=== PATIENT | male | born 1965 | race Caucasian/White ===

== ENCOUNTER 2017-01-26 08:45 | Inpatient (IN) | payer OTHER ==
[2017-01-26 09:01] VITALS: BMI 24.2
--- NOTE | 2017-01-26 12:00 | HP ---
CIWA Score - CIWA Score Nausea/Vomitin Muscle Tremors: 3 Anxiety: 3 Agitation: 3 Paroxysmal Sweats: 3 Orientation: 0-Oriented Tacttile Disturbances: 2-Mild Itch/Numbness/Burn Auditory Disturbances: 2-Mild Harshness/Frighten Visual Disturbances: 2-Mild Sensitivity Headache: 2-Mild CIWA-Ar Total Score: 23 Admission ROS BHS - HPI Chief Complaint: i need help to stop drinking alcohol,cocaine ,heroin,mmtp Allergies/Adverse Reactions: Allergies Allergy/AdvReac Type Severity Reaction Status Date / Time No Known Drug Allergies Allergy Verified 01/26/17 09:14 beans Allergy Intermediate Itching Uncoded 01/26/17 09:13 History of Present Illness: this 51 years old male with alcohol,cocaine dependence,heroin abused,mmtp 60 mgs /day,last medicated yesterday last detox 20 years ago nicotine dependence schizoaffective disorder longest period of sobriety 2 years Exam Limitations: No Limitations - Ebola screening Have you traveled outside of the country in the last 21 days: No Have you been sick,other than usual withdrawal symptoms: No - Review of Systems Constitutional: Chills, Diaphoresis, Loss of Appetite, Malaise, Night Sweats, Changes in sleep, Unexplained wgt Loss EENT: reports: Tearing, Nose Congestion Respiratory: reports: No Symptoms reported Cardiac: reports: No Symptoms Reported GI: reports: Diarrhea, Nausea, Vomiting, Indigestion, Abdominal cramping : reports: No Symptoms Reported Musculoskeletal: reports: Back Pain, Muscle Pain Integumentary: reports: Dryness Neuro: reports: Headache, Tremors Endocrine: reports: No Symptoms Reported Hematology: reports: No Symptoms Reported Psychiatric: reports: Judgement Intact, Mood/Affect Appropiate, Orientated x3, Anxious, Depressed, other (schizoaffective disorder) Patient History - Patient Medical History Hx Anemia: No Hx Asthma: No Hx Chronic Obstructive Pulmonary Disease (COPD): No Hx Cancer: No Hx Cardiac Disorders: No Hx Congestive Heart Failure: No Hx Hypertension: No Hx Hypercholesterolemia: No HX Cerebrovascular Accident: No Hx Seizures: Yes (last 2 years ago) Hx Diabetes: Yes (WDS=859) Hx Gastrointestinal Disorders: No Hx Liver Disease: No Hx Genitourinary Disorders: No Hx Sexually Transmitted Disorders: No Hx Renal Disease (ESRD): No Hx Thyroid Disease: No Hx Human Immunodeficiency Virus (HIV): No (last 2016 negative) Hx Hepatitis C: Yes (treatment 2015) Hx Depression: Yes Hx Suicide Attempt: No Hx Bipolar Disorder: No Hx Schizophrenia: Yes (schizoeffective) Other Medical History: no suicidal,no hmicidal - Patient Surgical History Past Surgical History: Yes Hx Orthopedic Surgery: Yes (2016-lrt knee(torn meniscus)Flat foot sx lt foot) Anesthesia Reaction: No - PPD History Previous Implant?: Yes Documented Results: Negative w/o proof Implanted On Prior [facility] Admission?: No PPD to be Administered?: Yes - Smoking Cessation Smoking history: Current every day smoker Have you smoked in the past 12 months: Yes Aproximately how many cigarettes per day: 10 Hx Chewing Tobacco Use: No Initiated information on smoking cessation: Yes 'Breaking Loose' booklet given: 01/26/17 - Substances Abused Alcohol Route: Oral Frequency: Daily Amount used: vodka(1/2 quart)/beer-2 cans/rum(1/2 quart) Age of first use: 9 Date of Last Use: 01/24/17 Heroin Route: Injection Frequency: Daily Amount used: 5 bags Age of first use: 28 Date of Last Use: 01/25/17 Cocaine Route: Injection Frequency: Daily Amount used: $100-200 Age of first use: 14 Date of Last Use: 01/25/17 Crack Route: Smoking Frequency: Daily Amount used: $100 Age of first use: 24 Date of Last Use: 01/25/17 Family Disease History - Family Disease History Family Disease History: Other: Mother (alcohol) Admission Physical Exam S - Vital Signs Vital Signs: Vital Signs - 24 hr 01/26/17 08:53 Temperature 95.9 F L Pulse Rate 78 Respiratory 18 Rate Blood Pressure 108/67 - Physical General Appearance: Yes: Moderate Distress, Tremorous, Irritable, Sweating, Anxious HEENTM: Yes: Hearing grossly Normal, Normal ENT Inspection, CECILIO, Nasal Congestion, Rhinorrhea Respiratory: Yes: Lungs Clear, Normal Breath Sounds, No Respiratory Distress Neck: Yes: Within Normal Limits, Supple, Trachea in good position Breast: Yes: Within Normal Limits Cardiology: Yes: Within Normal Limits, Regular Rhythm, Regular Rate, S1, S2 Abdominal: Yes: Within Normal Limits, Normal Bowel Sounds, Non Tender Genitourinary: Yes: Within Normal Limits Back: Yes: Normal Inspection, Muscle Spasm Musculoskeletal: Yes: Back pain, Joint Stiffness, Muscle Pain Extremities: Yes: Tremors Neurological: Yes: crop farm helper II-XII NML intact, Fully Oriented, Alert, Motor Strength 5/5 Integumentary: Yes: Dry Lymphatic: Yes: Within Normal Limits - Diagnostic (1) Alcohol dependence with uncomplicated withdrawal Current Visit: Yes Status: Acute (2) Cocaine dependence Current Visit: Yes Status: Acute (3) Methadone maintenance therapy patient Current Visit: Yes Status: Acute (4) Opioid dependence Current Visit: Yes Status: Acute (5) Seizure Current Visit: Yes Status: Acute (6) Weight loss Current Visit: Yes Status: Acute (7) DM2 (diabetes mellitus, type 2) Current Visit: Yes Status: Acute (8) Hepatitis C Current Visit: Yes Status: Acute (9) Right knee injury Current Visit: Yes Status: Acute Cleared for Admission [facility] - Detox or Rehab [facility] Level of Care: Medically Managed Detox Regimen/Protocol: Librium S Breath Alcohol Content Breath Alcohol Content: 0 Urine Drug Screen - Results Drug Screen Negative: No Urine Drug Screen Results: RACHEL-Cocaine, OPI-Opiates, MTD-Methadone
[2017-01-26] MEDS ORDERED: IBUPROFEN 400 MG TABLET (FP) PO PRN (12:14)
[2017-01-26] MEDS ORDERED: hydrOXYzine PAMOATE 50 MG CAPSULE (FP) PO PRN (12:14)
[2017-01-26] MEDS ORDERED: diphenhydrAMINE HCL 50 MG CAPSULE PO PRN (12:14)
[2017-01-26] MEDS ORDERED: chlordiazePOXIDE HCL 25 MG CAPSULE PO PRN (12:14)
[2017-01-26] MEDS ORDERED: MAGNESIUM HYDROX 2400MG/30ML ORAL SUSPENSION 30 ML CUP PO PRN (12:14)
[2017-01-26] MEDS ORDERED: MENTHOL/PHENOL 1 EACH UD MM PRN (12:14)
[2017-01-26] MEDS ORDERED: MAG HYDROX/AL HYDROX/SIMETH 30 ML UNIT-DOSE CUP PO PRN (12:14)
[2017-01-26] MEDS ORDERED: NICOTINE POLACRILEX 2 MG GUM BC PRN (12:14)
[2017-01-26] MEDS ORDERED: guaiFENesin/D-METHORPHAN HB 10 ML UNIT-DOSE CUPS PO PRN (12:14)
[2017-01-26] MEDS ORDERED: LOPERAMIDE HCL 2 MG CAPSULE PO PRN (12:14)
[2017-01-26] MEDS ORDERED: MAGNESIUM CITRATE 300 ML BOTTLE PO PRN (12:14)
[2017-01-26] MEDS ORDERED: ACETAMINOPHEN 325 MG TABLET (FP) PO PRN (12:14)
[2017-01-26] MEDS ORDERED: P-EPHED 60MG/TRIPROLIDI 2.5MG TABLET PO PRN (12:14)
[2017-01-26] MEDS ORDERED: METHADONE HCL 10 MG TABLET PO ONE (12:21)
[2017-01-26] MEDS ORDERED: chlordiazePOXIDE HCL 25 MG CAPSULE PO ONE (12:30)
[2017-01-26] MEDS ORDERED: METHADONE 40 MG, METHADONE 20 MG PO ONE (12:45)
[2017-01-26] MEDS ORDERED: METHADONE HCL 40 MG DISPERSABLE TABLET ONE (13:22)
[2017-01-26] MEDS ORDERED: METHADONE HCL 10 MG TABLET ONE (13:22)
[2017-01-26 14:38] LABS: HIV 1 & 2 AB NEGATIVE; HIV 1 AGp24 NEGATIVE
--- NOTE | 2017-01-26 15:09 | CONSULT ---
[facility] Psychiatric Consult - Data Date of interview: 01/26/17 Admission source: [facility] Identifying data: First admission to [facility] for this 51 y/o [place]-born male seeking detox treatment for heroin,alcohol,cocaine and marijuana dependence.Patient is single without children,now homeless,unemployed and supported on Public Assistance. Substance Abuse History: - Smoking Cessation. Smoking history: Current every day smoker. Have you smoked in the past 12 months: Yes. Aproximately how many cigarettes per day: 10. Hx Chewing Tobacco Use: No. Initiated information on smoking cessation: Yes. 'Breaking Loose' booklet given: 01/26/17. - Substances Abused. Alcohol. Route: Oral. Frequency: Daily. Amount used: vodka(1/2 quart)/beer-2 cans/rum(1/2 quart). Age of first use: 9. Date of Last Use: 01/24/17. Heroin. Route: Injection. Frequency: Daily. Amount used: 5 bags. Age of first use: 28. Date of Last Use: 01/25/17. Cocaine. Route: Injection. Frequency: Daily. Amount used: $100-200. Age of first use: 14. Date of Last Use: 01/25/17. Crack. Route: Smoking. Frequency: Daily. Amount used: $100. Age of first use: 24. Date of Last Use: 01/25/17. Confirmed by patient. Medical History: History of withdrawal seizures,hepatitis C,diabetes mellitus and orthosurgery for torn meniscus/right knee (2016) + surgical correction of flat foot (left). Psychiatric History: History of multiple psychiatric hospitalizations (years ago ).Diagnosed with Schizoaffective Disorder and ADHD.Prescribed seroquel 100 mg/ hs + depakote 500 mg po bid + adderall 20 mg po bid + zolpidem 10 mg/ hs.Chronically non-adherent to OPD care and medications.Last scripts were filled in September 2016.Mr Atwood recognizes the fact tthat he has not seen his psychiatrist " for a while ".Patient states that he wants to get back on his medications in order to have " control of my life ".He is on methadone maintenance (60 mg/day) at the [facility] in the [place].Patient denies history of suicide attempts. Physical/Sexual Abuse/Trauma History: Patient denies. Additional Comment: Urine Drug Screen Results: RACHEL-Cocaine, OPI-Opiates, MTD- Methadone.Noted. Mental Status Exam - Mental Status Exam Alert and Oriented to: Time, Place, Person Cognitive Function: Good Patient Appearance: Well Groomed Mood: Hopeful, Euthymic Affect: Appropriate, Normal Range Patient Behavior: Fatigued, Appropriate, Cooperative Speech Pattern: Clear Voice Loudness: Normal Thought Process: Goal Oriented Thought Disorder: Not Present Hallucinations: Denies Suicidal Ideation: Denies Homicidal Ideation: Denies Insight/Judgement: Poor Sleep: Poorly, Difficulty falling asleep Appetite: Good Muscle strength/Tone: Normal Gait/Station: Normal Psychiatric Findings - Problem List ([place] 1, 2,3) (1) Alcohol dependence with uncomplicated withdrawal Current Visit: Yes Status: Acute (2) Cocaine dependence Current Visit: Yes Status: Acute (3) Methadone maintenance therapy patient Current Visit: Yes Status: Acute (4) Opioid dependence Current Visit: Yes Status: Acute (5) Nicotine dependence Current Visit: Yes Status: Acute (6) Schizoaffective disorder Current Visit: Yes Status: Chronic Comment: Self-report. (7) DM2 (diabetes mellitus, type 2) Current Visit: Yes Status: Chronic (8) Hepatitis C Current Visit: Yes Status: Chronic (9) Right knee injury Current Visit: Yes Status: Chronic (10) Insomnia Current Visit: Yes Status: Acute - Initial Treatment Plan Initial Treatment Plan: Psychoeducation.Detoxification in progress.Medications : seroquel 100 mg po hs + depakote 500 mg po hs + ritalin 5 mg po bid @ 8 am/1 pm.Side effects/benefits discussed with the patient.He agrees with this careplan.Valproic acid level is pending.Observation.
[2017-01-26] MEDS: chlordiazePOXIDE HCL 25 MG CAPSULE PO SCH ×2 (17:21→22:37)
[2017-01-26 17:22] LABS: URINE APPEARANCE TURBID; URINE BILIRUBIN NEGATIVE (NEGATIVE); URINE BLOOD NEGATIVE (NEGATIVE); URINE COLOR YELLOW; URINE GLUCOSE (UA) NEGATIVE (NEGATIVE); URINE KETONE NEGATIVE (NEGATIVE); URINE NITRITE NEGATIVE (NEGATIVE); URINE PROTEIN NEGATIVE (NEGATIVE); URINE UROBILINOGEN NEGATIVE E.U./dl (0.2-1.0)
[2017-01-26 17:43] LABS: URINE LEUK ESTERASE 2+ (NEGATIVE)
[2017-01-26 19:50] LABS: URINE MUCUS FEW; URINE WBC 98 /hpf (3-5)
[2017-01-26] MEDS: THIAMINE HCL 100 MG TABLET (FP) PO SCH (22:37)
[2017-01-26] MEDS: QUEtiapine FUMARATE 100 MG TABLET (FP) PO SCH (22:38)
[2017-01-26] MEDS: DIVALPROEX SODIUM 500 MG TABLET E.C. PO SCH (22:38)
[2017-01-27] MEDS: chlordiazePOXIDE HCL 25 MG CAPSULE PO SCH ×3 (05:34→22:30)
[2017-01-27] MEDS ORDERED: METHADONE HCL 10 MG TABLET ONE (05:35)
[2017-01-27] MEDS ORDERED: METHADONE HCL 40 MG DISPERSABLE TABLET ONE (05:35)
[2017-01-27] MEDS: METHADONE 40 MG, METHADONE 20 MG PO SCH (05:37)
[2017-01-27] MEDS ORDERED: METHADONE HCL 10 MG TABLET PO SCH (06:00)
[2017-01-27] MEDS: METHYLPHENIDATE HCL 5 MG TABLET PO SCH ×2 (06:59→14:28)
[2017-01-27] MEDS: metFORMIN HCL 500 MG TABLET (FP) PO SCH (07:06)
--- NOTE | 2017-01-27 09:29 | PN ---
[facility] CIWA - CIWA Score Nausea/Vomitin-No Nausea/No Vomiting Muscle Tremors: 4-Moderate,w/Arms Extend Anxiety: 3 Agitation: 4-Moderately Restless Paroxysmal Sweats: 3 Orientation: 0-Oriented Tacttile Disturbances: 0-None Auditory Disturbances: 0-None Visual Disturbances: 0-None Headache: 0-None Present CIWA-Ar Total Score: 14 BHS Progress Note (SOAP) Subjective: Anxiety,tremors,sweating,interrupted sleep,restless.Somewhat drowsy Objective: 01/27/17 09:28 Vital Signs - 8 hr 01/27/17 06:30 Temperature 99 F Pulse Rate 80 Respiratory 16 Rate Blood Pressure 108/71 Laboratory Last Values POC Glucometer 102 UNITS (()) 01/27/17 05:37 Urine Color Yellow 01/26/17 13:50 Urine Appearance Turbid 01/26/17 13:50 Urine pH 5.0 (5.0-8.0) 01/26/17 13:50 Ur Specific [place] 1.031 (1.001-1.035) 01/26/17 13:50 Urine Protein Negative (NEGATIVE) 01/26/17 13:50 Urine Glucose (UA) Negative (NEGATIVE) 01/26/17 13:50 Urine Ketones Negative (NEGATIVE) 01/26/17 13:50 Urine Blood Negative (NEGATIVE) 01/26/17 13:50 Urine Nitrite Negative (NEGATIVE) 01/26/17 13:50 Urine Bilirubin Negative (NEGATIVE) 01/26/17 13:50 Urine Urobilinogen Negative E.U./dl (0.2-1.0) 01/26/17 13:50 Ur Leukocyte Esterase 2+ (NEGATIVE) H 01/26/17 13:50 Urine RBC None /hpf (0-3) 01/26/17 13:50 Urine WBC 98 /hpf (3-5) 01/26/17 13:50 Urine Mucus Few 01/26/17 13:50 HIV 1&2 Antibody Screen Negative 01/26/17 09:50 HIV P24 Antigen Negative 01/26/17 09:50 we'll repeat u/a Assessment: 01/27/17 09:28 withdrawal sx. Plan: continue detox hold 11am librium
[2017-01-27] MEDS ORDERED: ALBUTEROL SO4 6.7 GM HFA INHALER IH PRN (09:31)
[2017-01-27 10:08] LABS: MCH 29.9 pg (25.7-33.7); MEAN CELL VOLUME 90.8 fl (80-96); PLATELET COUNT 237 K/MM3 (134-434); RDW 13.2 % (11.9-15.9); WHITE BLOOD COUNT 7.3 K/mm3 (4.0-10.0)
[2017-01-27 10:11] LABS: ALBUMIN 3.7 g/dl (3.4-5.0); ALK PHOS 44 U/L (45-117); BILIRUBIN,TOTAL 0.3 mg/dL (0.2-1.0); CALCIUM 8.9 mg/dL (8.5-10.1); CO2 24 mmol/L (21-32); GLUCOSE,RANDOM 115 mg/dL (74-106); SGOT/AST 14 U/L (15-37); SGPT/ALT 18 U/L (12-78); TOT PROT 7.2 g/dl (6.4-8.2)
[2017-01-27] MEDS: PRENATAL VITAMINS W/ FOLIC ACID TABLET (FP) PO SCH (10:42)
[2017-01-27 10:55] LABS: ANION GAP 14 (8-16)
--- NOTE | 2017-01-27 14:37 | PN ---
Psychiatric Progress Note Vital Signs: Vital Signs Period Temp Pulse Resp BP Sys/Little Pulse Ox Last 24 Hr 96.4 F-99 F 80-87 16-20 104-119/60-72 Date of Session: 01/27/17 Chief Complaint:: sedation HPI: As per nursing reports patient is oversedated after taking methylphenidate order, as per nursing patient has been oversedated since early after evening Depakote order probably Current Medications: Active Medications Generic Name Dose Route Start Last Admin Trade Name Freq PRN Reason Stop Dose Admin Acetaminophen 650 mg 01/26/17 12:14 Tylenol - PO Q4H PRN FEVER OR PAIN Al Hydroxide/Mg Hydroxide 30 ml 01/26/17 12:14 Mylanta Oral Suspension - PO Q6H PRN DYSPEPSIA Albuterol Sulfate 2 puff 01/27/17 09:31 Ventolin Hfa Inhaler - IH Q4H PRN SHORT OF BREATH/WHEEZING Chlordiazepoxide HCl 10 mg 01/29/17 17:00 Librium - PO 01/30/17 11:01 [id number] ELA Chlordiazepoxide HCl 25 mg 01/26/17 12:14 Librium - PO 01/29/17 12:13 Q4H PRN WITHDRAWAL(CONT SUBST) Chlordiazepoxide HCl 25 mg 01/27/17 17:00 Librium - PO 01/28/17 11:01 [id number] ELA Chlordiazepoxide HCl 15 mg 01/28/17 17:00 Librium - PO 01/29/17 11:01 [id number] ELA Diphenhydramine HCl 50 mg 01/26/17 12:14 Benadryl - PO HSMR1 PRN INSOMNIA Divalproex Sodium 500 mg 01/26/17 22:00 01/26/17 22:38 Depakote - PO 500 mg HS ELA Administration Eucalyptus/Menthol/Phenol/Sorbitol 1 each 01/26/17 12:14 Cepastat Lozenge - MM Q4H PRN SORE THROAT Guaifenesin 10 ml 01/26/17 12:14 Robitussin Dm - PO Q6H PRN COUGH Hydroxyzine Pamoate 50 mg 01/26/17 12:14 Vistaril - PO Q4H PRN AGITATION Ibuprofen 400 mg 01/26/17 12:14 Motrin - PO Q6H PRN SEVERE PAIN Loperamide HCl 4 mg 01/26/17 12:14 Imodium - PO Q6H PRN DIARRHEA Magnesium Citrate 300 ml 01/26/17 12:14 Citroma - PO Q48H PRN CONSTIPATION Magnesium Hydroxide 30 ml 01/26/17 12:14 Milk Of Magnesia - PO DAILY PRN CONSTIPATION Metformin HCl 1,000 mg 01/27/17 07:00 01/27/17 07:06 Glucophage - PO 1,000 mg DAILY@0700 ELA Administration Methadone HCl 40 mg/ Methadone 60 mg 01/27/17 06:00 01/27/17 05:37 HCl 20 mg PO 02/02/17 06:01 60 mg DAILY@0600 ELA Administration Methylphenidate HCl 5 mg 01/27/17 08:00 01/27/17 14:28 Ritalin - PO 02/02/17 07:59 Not Given BID@0800,1300 [facility] Nicotine Polacrilex 2 mg 01/26/17 12:14 Nicorette Gum - BC Q2H PRN NICOTINE REPLACEMENT RX Multivit/Folic Acid/Iron 1 tab 01/27/17 10:00 01/27/17 10:42 Vitamins ([facility]) - PO 1 tab DAILY ELA Administration Pseudoephedrine/Triprolidine 1 combo 01/26/17 12:14 Actifed - PO TID PRN NASAL CONGESTION Quetiapine Fumarate 100 mg 01/26/17 22:00 01/26/17 22:38 Seroquel - PO 100 mg HS ELA Administration Thiamine HCl 100 mg 01/26/17 22:00 01/26/17 22:37 Vitamin B1 - PO 100 mg HS ELA Administration Medication(s) Change(s): Hold psychiatric orders until am psychiatric reevaluation Mental Status Exam - Mental Status Exam Alert and Oriented to: Person Cognitive Function: Fair Patient Appearance: Unkempt Mood: Sad Affect: Flat Patient Behavior: Sedated, Fatigued Speech Pattern: Delayed Voice Loudness: Moderately Soft/Quiet Thought Process: Circumstantial Thought Disorder: Being Controlled Hallucinations: Denies Suicidal Ideation: Denies Homicidal Ideation: Denies Insight/Judgement: Fair Sleep: Difficulty falling asleep Appetite: Fair Muscle strength/Tone: Moderate Hypotonicity Gait/Station: Shuffling Additional Comments: Hold psychiatric orders until am psychiatric reevaluation Psychiatric Treatment Plan - Problem List (1) Alcohol dependence with uncomplicated withdrawal Current Visit: Yes (2) Cocaine dependence Current Visit: Yes (3) Methadone maintenance therapy patient Current Visit: Yes (4) Nicotine dependence Current Visit: Yes (5) Opioid dependence Current Visit: Yes (6) Weight loss Current Visit: Yes (7) Schizoaffective disorder Current Visit: Yes Comment: Self-report. Initial treatment plan: Hold psychiatric orders until am psychiatric reevaluation
--- NOTE | 2017-01-27 17:19 | EKG ---
Test Reason : Blood Pressure : / mmHG Vent. Rate : 073 BPM Atrial Rate : 073 BPM P-R Int : 146 ms QRS Dur : 084 ms QT Int : 404 ms P-R-T Axes : 061 050 050 degrees QTc Int : 445 ms NORMAL SINUS RHYTHM NORMAL ECG NO PREVIOUS ECGS AVAILABLE Confirmed by TOM QUEEN MD ([id number]) on 01/27/2017 5:18:47 PM Referred By: Dixon Porras Confirmed By:TOM QUEEN MD
[2017-01-27] MEDS: THIAMINE HCL 100 MG TABLET (FP) PO SCH (22:30)
[2017-01-27] MEDS: QUEtiapine FUMARATE 100 MG TABLET (FP) PO SCH (23:17)
[2017-01-27] MEDS: DIVALPROEX SODIUM 500 MG TABLET E.C. PO SCH (23:17)
[2017-01-28] MEDS ORDERED: METHADONE HCL 10 MG TABLET ONE (01:24)
[2017-01-28] MEDS ORDERED: METHADONE HCL 40 MG DISPERSABLE TABLET ONE (01:25)
[2017-01-28] MEDS: METHADONE 40 MG, METHADONE 20 MG PO SCH (05:24)
[2017-01-28] MEDS: chlordiazePOXIDE HCL 25 MG CAPSULE PO SCH ×2 (05:26→10:24)
[2017-01-28] MEDS: metFORMIN HCL 500 MG TABLET (FP) PO SCH (06:09)
[2017-01-28] MEDS: PRENATAL VITAMINS W/ FOLIC ACID TABLET (FP) PO SCH (10:24)
[2017-01-28] MEDS: METHYLPHENIDATE HCL 5 MG TABLET PO SCH ×2 (10:24→13:21)
--- NOTE | 2017-01-28 12:42 | PN ---
S CIWA - CIWA Score Nausea/Vomitin Muscle Tremors: 4-Moderate,w/Arms Extend Anxiety: 2 Agitation: 3 Paroxysmal Sweats: 2 Orientation: 0-Oriented Tacttile Disturbances: 3-Moderate Itch/Numb/Burn Auditory Disturbances: 0-None Visual Disturbances: 2-Mild Sensitivity Headache: 0-None Present CIWA-Ar Total Score: 18 S Progress Note (SOAP) Subjective: Nausea, Body aches, Tremors. Objective: PT. A & O X 3, OBSERVED AMBULATING ON UNIT. 01/28/17 12:41 Vital Signs Temperature 96.2 F L 01/28/17 10:44 Pulse Rate 79 01/28/17 10:44 Respiratory Rate 18 01/28/17 10:44 Blood Pressure 107/71 01/28/17 10:44 O2 Sat by Pulse Oximetry (%) Laboratory Last Values WBC 7.3 K/mm3 (4.0-10.0) 01/27/17 06:00 RBC 4.29 M/mm3 (4.00-5.60) 01/27/17 06:00 Hgb 12.8 GM/dL (11.7-16.9) 01/27/17 06:00 Hct 39.0 % (35.4-49) 01/27/17 06:00 MCV 90.8 fl (80-96) 01/27/17 06:00 MCHC 33.0 g/dl (32.0-35.9) 01/27/17 06:00 RDW 13.2 % (11.9-15.9) 01/27/17 06:00 Plt Count 237 K/MM3 (134-434) 01/27/17 06:00 MPV 10.0 fl (7.5-11.1) 01/27/17 06:00 Sodium 145 mmol/L (136-145) 01/27/17 06:00 Potassium 3.8 mmol/L (3.5-5.1) 01/27/17 06:00 Chloride 107 mmol/L (98-107) 01/27/17 06:00 Carbon Dioxide 24 mmol/L (21-32) 01/27/17 06:00 Anion Gap 14 (8-16) 01/27/17 06:00 BUN 18 mg/dL (7-18) 01/27/17 06:00 Creatinine 1.0 mg/dL (0.7-1.3) 01/27/17 06:00 Creat Clearance w eGFR > 60 (>60) 01/27/17 06:00 POC Glucometer 93 UNITS (()) 01/28/17 05:23 Random Glucose 115 mg/dL (74-106) H 01/27/17 06:00 Calcium 8.9 mg/dL (8.5-10.1) 01/27/17 06:00 Total Bilirubin 0.3 mg/dL (0.2-1.0) 01/27/17 06:00 AST 14 U/L (15-37) L 01/27/17 06:00 ALT 18 U/L (12-78) 01/27/17 06:00 Alkaline Phosphatase 44 U/L (45-117) L 01/27/17 06:00 Total Protein 7.2 g/dl (6.4-8.2) 01/27/17 06:00 Albumin 3.7 g/dl (3.4-5.0) 01/27/17 06:00 Urine Color Yellow 01/26/17 13:50 Urine Appearance Turbid 01/26/17 13:50 Urine pH 5.0 (5.0-8.0) 01/26/17 13:50 Ur Specific [place] 1.031 (1.001-1.035) 01/26/17 13:50 Urine Protein Negative (NEGATIVE) 01/26/17 13:50 Urine Glucose (UA) Negative (NEGATIVE) 01/26/17 13:50 Urine Ketones Negative (NEGATIVE) 01/26/17 13:50 Urine Blood Negative (NEGATIVE) 01/26/17 13:50 Urine Nitrite Negative (NEGATIVE) 01/26/17 13:50 Urine Bilirubin Negative (NEGATIVE) 01/26/17 13:50 Urine Urobilinogen Negative E.U./dl (0.2-1.0) 01/26/17 13:50 Ur Leukocyte Esterase 2+ (NEGATIVE) H 01/26/17 13:50 Urine RBC None /hpf (0-3) 01/26/17 13:50 Urine WBC 98 /hpf (3-5) 01/26/17 13:50 Urine Mucus Few 01/26/17 13:50 Valproic Acid < 3.000 ug/ml (50-100) L 01/27/17 06:00 RPR Titer Nonreactive (NONREACTIVE) 01/27/17 06:00 HIV 1&2 Antibody Screen Negative 01/26/17 09:50 HIV P24 Antigen Negative 01/26/17 09:50 LABS NOTED. Assessment: 01/28/17 12:41 WITHDRAWAL SYMPTOMS. Plan: CONTINUE DETOX. ADVISED PATIENT TO FOLLOW-UP WITH DIRECTOR BUSINESS TRAVEL / REHAB MEDICAL PROVIDER AFTER DISCHARGE FROM DETOX FOR GENERAL MEDICAL ASSESSMENT AND FOR ANY ABNORMAL ADMISSION LAB VALUES.
[2017-01-28] MEDS: AMMONIUM LACTATE 12% LOTION 225 GM BOTTLE TP SCH ×2 (13:23→22:36)
[2017-01-28] MEDS: chlordiazePOXIDE 5 MG CAPSULE PO SCH ×2 (17:18→22:34)
[2017-01-28 20:08] LABS: URINE APPEARANCE CLEAR; URINE BILIRUBIN NEGATIVE (NEGATIVE); URINE BLOOD NEGATIVE (NEGATIVE); URINE COLOR LTYELLOW; URINE GLUCOSE (UA) NEGATIVE (NEGATIVE); URINE KETONE NEGATIVE (NEGATIVE); URINE NITRITE NEGATIVE (NEGATIVE); URINE PROTEIN NEGATIVE (NEGATIVE); URINE UROBILINOGEN NEGATIVE E.U./dl (0.2-1.0)
[2017-01-28 20:10] LABS: URINE LEUK ESTERASE 2+ (NEGATIVE)
[2017-01-28 20:16] LABS: URINE RBC 1 /hpf (0-3); URINE WBC 10 /hpf (3-5)
[2017-01-28] MEDS: QUEtiapine FUMARATE 100 MG TABLET (FP) PO SCH (22:34)
[2017-01-28] MEDS: DIVALPROEX SODIUM 500 MG TABLET E.C. PO SCH (22:34)
[2017-01-28] MEDS: THIAMINE HCL 100 MG TABLET (FP) PO SCH (22:34)
[2017-01-29] MEDS ORDERED: METHADONE HCL 10 MG TABLET ONE (03:44)
[2017-01-29] MEDS ORDERED: METHADONE HCL 40 MG DISPERSABLE TABLET ONE (03:44)
[2017-01-29] MEDS: METHADONE 40 MG, METHADONE 20 MG PO SCH (05:47)
[2017-01-29] MEDS: chlordiazePOXIDE 5 MG CAPSULE PO SCH ×2 (06:00→10:48)
[2017-01-29] MEDS: METHYLPHENIDATE HCL 5 MG TABLET PO SCH ×2 (07:32→13:52)
[2017-01-29] MEDS: metFORMIN HCL 500 MG TABLET (FP) PO SCH (07:42)
[2017-01-29] MEDS: PRENATAL VITAMINS W/ FOLIC ACID TABLET (FP) PO SCH (10:46)
[2017-01-29] MEDS: AMMONIUM LACTATE 12% LOTION 225 GM BOTTLE TP SCH ×2 (10:46→22:34)
--- NOTE | 2017-01-29 13:19 | PN ---
BHS Progress Note (SOAP) Subjective: Sweating,interrupted sleep,restless Objective: 01/29/17 13:18 Vital Signs - 8 hr 01/29/17 01/29/17 06:21 09:31 Temperature 98.4 F 98.2 F Pulse Rate 86 77 Respiratory 16 18 Rate Blood Pressure 99/63 96/63 Laboratory Tests 01/26/17 01/26/17 01/26/17 09:43 09:50 13:50 WBC RBC Hgb Hct MCV MCHC RDW Plt Count MPV Sodium Potassium Chloride Carbon Dioxide Anion Gap BUN Creatinine Creat Clearance w eGFR POC Glucometer 120 Random Glucose Calcium Total Bilirubin AST ALT Alkaline Phosphatase Total Protein Albumin Urine Color Yellow Urine Appearance Turbid Urine pH 5.0 Ur Specific [place] 1.031 Urine Protein Negative Urine Glucose (UA) Negative Urine Ketones Negative Urine Blood Negative Urine Nitrite Negative Urine Bilirubin Negative Urine Urobilinogen Negative Ur Leukocyte Esterase 2+ H Urine RBC None Urine WBC 98 Ur Epithelial Cells Urine Mucus Few Valproic Acid RPR Titer HIV 1&2 Antibody Screen Negative HIV P24 Antigen Negative 01/27/17 01/27/17 01/27/17 05:37 06:00 06:00 WBC 7.3 RBC 4.29 Hgb 12.8 Hct 39.0 MCV 90.8 MCHC 33.0 RDW 13.2 Plt Count 237 MPV 10.0 Sodium 145 Potassium 3.8 Chloride 107 Carbon Dioxide 24 Anion Gap 14 BUN 18 Creatinine 1.0 Creat Clearance w eGFR > 60 POC Glucometer 102 Random Glucose 115 H Calcium 8.9 Total Bilirubin 0.3 AST 14 L ALT 18 Alkaline Phosphatase 44 L Total Protein 7.2 Albumin 3.7 Urine Color Urine Appearance Urine pH Ur Specific [place] Urine Protein Urine Glucose (UA) Urine Ketones Urine Blood Urine Nitrite Urine Bilirubin Urine Urobilinogen Ur Leukocyte Esterase Urine RBC Urine WBC Ur Epithelial Cells Urine Mucus Valproic Acid RPR Titer HIV 1&2 Antibody Screen HIV P24 Antigen 01/27/17 01/27/17 01/28/17 06:00 06:00 05:23 WBC RBC Hgb Hct MCV MCHC RDW Plt Count MPV Sodium Potassium Chloride Carbon Dioxide Anion Gap BUN Creatinine Creat Clearance w eGFR POC Glucometer 93 Random Glucose Calcium Total Bilirubin AST ALT Alkaline Phosphatase Total Protein Albumin Urine Color Urine Appearance Urine pH Ur Specific [place] Urine Protein Urine Glucose (UA) Urine Ketones Urine Blood Urine Nitrite Urine Bilirubin Urine Urobilinogen Ur Leukocyte Esterase Urine RBC Urine WBC Ur Epithelial Cells Urine Mucus Valproic Acid < 3.000 L RPR Titer Nonreactive HIV 1&2 Antibody Screen HIV P24 Antigen 01/28/17 01/29/17 15:46 05:47 WBC RBC Hgb Hct MCV MCHC RDW Plt Count MPV Sodium Potassium Chloride Carbon Dioxide Anion Gap BUN Creatinine Creat Clearance w eGFR POC Glucometer 109 Random Glucose Calcium Total Bilirubin AST ALT Alkaline Phosphatase Total Protein Albumin Urine Color Ltyellow Urine Appearance Clear Urine pH 5.0 Ur Specific [place] 1.020 Urine Protein Negative Urine Glucose (UA) Negative Urine Ketones Negative Urine Blood Negative Urine Nitrite Negative Urine Bilirubin Negative Urine Urobilinogen Negative Ur Leukocyte Esterase 2+ H Urine RBC 1 Urine WBC 10 Ur Epithelial Cells Rare Urine Mucus Valproic Acid RPR Titer HIV 1&2 Antibody Screen HIV P24 Antigen labs noted Assessment: 01/29/17 13:18 Withdrawal sx. Plan: Continue detox
[2017-01-29] MEDS: chlordiazePOXIDE HCL 10 MG CAPSULE PO SCH ×2 (17:49→22:34)
[2017-01-29] MEDS: THIAMINE HCL 100 MG TABLET (FP) PO SCH (22:34)
[2017-01-30] MEDS ORDERED: METHADONE HCL 40 MG DISPERSABLE TABLET ONE (03:10)
[2017-01-30] MEDS ORDERED: METHADONE HCL 10 MG TABLET ONE (03:10)
[2017-01-30] MEDS: METHADONE 40 MG, METHADONE 20 MG PO SCH (05:42)
[2017-01-30] MEDS: chlordiazePOXIDE HCL 10 MG CAPSULE PO SCH (05:42)
[2017-01-30 06:26] VITALS: BP 97/66; PULSE 74; TEMP 98.1
[2017-01-30] MEDS: metFORMIN HCL 500 MG TABLET (FP) PO SCH (07:02)
--- NOTE | 2017-01-30 10:23 | DS ---
[facility] Detox Discharge Summary Admission Date: 01/26/17 Discharge Date: 01/30/17 - History Present History: Alcohol Dependence, Cocaine Dependence, MMTP Pertinent Past History: HEP C Type II DM - Physical Exam Results Vital Signs: Vital Signs Temperature 98.1 F 01/30/17 06:25 Pulse Rate 74 01/30/17 06:25 Respiratory Rate 16 01/30/17 06:25 Blood Pressure 97/66 01/30/17 06:25 O2 Sat by Pulse Oximetry (%) Pertinent Admission Physical Exam Findings: Withdrawal sx. Laboratory Last Values WBC 7.3 K/mm3 (4.0-10.0) 01/27/17 06:00 RBC 4.29 M/mm3 (4.00-5.60) 01/27/17 06:00 Hgb 12.8 GM/dL (11.7-16.9) 01/27/17 06:00 Hct 39.0 % (35.4-49) 01/27/17 06:00 MCV 90.8 fl (80-96) 01/27/17 06:00 MCHC 33.0 g/dl (32.0-35.9) 01/27/17 06:00 RDW 13.2 % (11.9-15.9) 01/27/17 06:00 Plt Count 237 K/MM3 (134-434) 01/27/17 06:00 MPV 10.0 fl (7.5-11.1) 01/27/17 06:00 Sodium 145 mmol/L (136-145) 01/27/17 06:00 Potassium 3.8 mmol/L (3.5-5.1) 01/27/17 06:00 Chloride 107 mmol/L (98-107) 01/27/17 06:00 Carbon Dioxide 24 mmol/L (21-32) 01/27/17 06:00 Anion Gap 14 (8-16) 01/27/17 06:00 BUN 18 mg/dL (7-18) 01/27/17 06:00 Creatinine 1.0 mg/dL (0.7-1.3) 01/27/17 06:00 Creat Clearance w eGFR > 60 (>60) 01/27/17 06:00 POC Glucometer 109 UNITS (()) 01/30/17 05:41 Random Glucose 115 mg/dL (74-106) H 01/27/17 06:00 Calcium 8.9 mg/dL (8.5-10.1) 01/27/17 06:00 Total Bilirubin 0.3 mg/dL (0.2-1.0) 01/27/17 06:00 AST 14 U/L (15-37) L 01/27/17 06:00 ALT 18 U/L (12-78) 01/27/17 06:00 Alkaline Phosphatase 44 U/L (45-117) L 01/27/17 06:00 Total Protein 7.2 g/dl (6.4-8.2) 01/27/17 06:00 Albumin 3.7 g/dl (3.4-5.0) 01/27/17 06:00 Urine Color Ltyellow 01/28/17 15:46 Urine Appearance Clear 01/28/17 15:46 Urine pH 5.0 (5.0-8.0) 01/28/17 15:46 Ur Specific [place] 1.020 (1.001-1.035) 01/28/17 15:46 Urine Protein Negative (NEGATIVE) 01/28/17 15:46 Urine Glucose (UA) Negative (NEGATIVE) 01/28/17 15:46 Urine Ketones Negative (NEGATIVE) 01/28/17 15:46 Urine Blood Negative (NEGATIVE) 01/28/17 15:46 Urine Nitrite Negative (NEGATIVE) 01/28/17 15:46 Urine Bilirubin Negative (NEGATIVE) 01/28/17 15:46 Urine Urobilinogen Negative E.U./dl (0.2-1.0) 01/28/17 15:46 Ur Leukocyte Esterase 2+ (NEGATIVE) H 01/28/17 15:46 Urine RBC 1 /hpf (0-3) 01/28/17 15:46 Urine WBC 10 /hpf (3-5) 01/28/17 15:46 Ur Epithelial Cells Rare /hpf (FEW) 01/28/17 15:46 Urine Mucus Few 01/26/17 13:50 Valproic Acid < 3.000 ug/ml (50-100) L 01/27/17 06:00 RPR Titer Nonreactive (NONREACTIVE) 01/27/17 06:00 HIV 1&2 Antibody Screen Negative 01/26/17 09:50 HIV P24 Antigen Negative 01/26/17 09:50 labs noted - Treatment Hospital Course: Detox Protocol Followed, Detoxed Safely, Responded well, Discharged Condition Good, Rehab Referral Accepted Patient has Accepted a Rehab Referral to: 12-step meeting, OTP - Medication Discharge Medications: Ambulatory Orders Cyclobenzaprine HCl [Flexeril 10 mg] 10 mg PO TID 01/26/17 Dextroamphetamine/Amphetamine [Adderall 10 mg Tablet] 20 mg PO BID 01/26/17 Metformin HCl [Metformin HCl ER] 1,000 mg PO DAILY 01/26/17 Methadone [Dolophine -] 60 mg PO DAILY 01/26/17 Oxycodone HCl/Acetaminophen [Percocet 5-325 mg Tablet] 1 - 2 tab PO Q4H Quetiapine Fumarate [Seroquel -] 100 mg PO HS 01/26/17 Zolpidem Tartrate [Ambien] 10 mg PO HS 01/26/17 - Diagnosis (1) Alcohol dependence with uncomplicated withdrawal Status: Acute (2) Cocaine dependence Status: Acute Qualifiers: Substance use status: uncomplicated Qualified Code(s): F14.20 - Cocaine dependence, uncomplicated (3) Insomnia Status: Acute (4) Methadone maintenance therapy patient Status: Acute (5) Nicotine dependence Status: Acute Qualifiers: Nicotine product type: cigarettes Substance use status: uncomplicated Qualified Code(s): F17.210 - Nicotine dependence, cigarettes, uncomplicated (6) DM2 (diabetes mellitus, type 2) Status: Chronic Qualifiers: Diabetes mellitus complication status: without complication Diabetes mellitus usp insulin use: without technician terminal and repeater use Qualified Code(s): E11.9 - Type 2 diabetes mellitus without complications (7) Hepatitis C Status: Chronic Qualifiers: Viral hepatitis chronicity: chronic Hepatic coma status: without hepatic coma Qualified Code(s): B18.2 - Chronic viral hepatitis C - AMA Did Patient Leave Against Medical Advice: No
== END 2017-01-30 09:23 | disposition home or self-care (01) | DRG 773 ==
LOC: YASAS 08:45 → Y3N 11:30
PROVIDERS: ADMIT Internal Medicine Addiction Medicine; ATTEND Internal Medicine Addiction Medicine
PROC: HZ2ZZZZ Detoxification Services for Substance Abuse Treatment (ICD-10-PCS; principal; 2017-01-30)
DX: F11.20 Opioid dependence, uncomplicated (principal); F10.230 Alcohol dependence with withdrawal, uncomplicated; F14.20 Cocaine dependence, uncomplicated; F17.210 Nicotine dependence, cigarettes, uncomplicated; G47.00 Insomnia, unspecified; E11.9 Type 2 diabetes mellitus without complications; Z79.84 Long term (current) use of oral hypoglycemic drugs; F25.9 Schizoaffective disorder, unspecified; B18.2 Chronic viral hepatitis C
CPT/HCPCS: 36415; 80053; 80164; 81003; 81015; 85027; 86593; 87389; 93005; 93010

== ENCOUNTER 2017-10-16 09:11 | Inpatient (IN) | payer OTHER ==
[2017-10-16 09:46] VITALS: BMI 25.5
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
[2017-10-16] MEDS ORDERED: LOPERAMIDE HCL 2 MG CAPSULE PO PRN (13:00)
[2017-10-16] MEDS ORDERED: guaiFENesin/D-METHORPHAN HB 10 ML UNIT-DOSE CUPS PO PRN (13:00)
[2017-10-16] MEDS ORDERED: ACETAMINOPHEN 325 MG TABLET (FP) PO PRN (13:00)
[2017-10-16] MEDS ORDERED: METHADONE HCL 10 MG TABLET (FOR DETOX USE ONLY) PO ONE ×2 (13:00→23:00)
[2017-10-16] MEDS ORDERED: NICOTINE POLACRILEX 2 MG GUM BUC PRN (13:00)
[2017-10-16] MEDS ORDERED: IBUPROFEN 400 MG TABLET (FP) PO PRN (13:00)
[2017-10-16] MEDS ORDERED: P-EPHED 60MG/TRIPROLIDI 2.5MG TABLET PO PRN (13:00)
[2017-10-16] MEDS ORDERED: MENTHOL/PHENOL 1 EACH UD MM PRN (13:00)
[2017-10-16] MEDS ORDERED: chlordiazePOXIDE HCL 25 MG CAPSULE PO PRN (13:00)
[2017-10-16] MEDS ORDERED: MAGNESIUM HYDROX 2400MG/30ML ORAL SUSPENSION 30 ML CUP PO PRN (13:00)
[2017-10-16] MEDS ORDERED: hydrOXYzine PAMOATE 50 MG CAPSULE (FP) PO PRN (13:00)
[2017-10-16] MEDS ORDERED: MAG HYDROX/AL HYDROX/SIMETH 30 ML UNIT-DOSE CUP PO PRN (13:00)
[2017-10-16] MEDS ORDERED: chlordiazePOXIDE HCL 25 MG CAPSULE PO ONE (13:00)
[2017-10-16] MEDS ORDERED: MAGNESIUM CITRATE 300 ML BOTTLE PO PRN (13:00)
[2017-10-16] MEDS: ASPIRIN COATED 81 MG TABLET.EC PO SCH (15:04)
[2017-10-16] MEDS: NICOTINE 21 MG/24 HOURS TOPICAL PATCH TD SCH (15:05)
[2017-10-16] MEDS: BUDESONIDE/FORMETEROL FUMARATE 160/4.5 mcg INHALER IH SCH ×2 (15:05→22:25)
[2017-10-16] MEDS: chlordiazePOXIDE HCL 25 MG CAPSULE PO SCH ×2 (17:50→22:26)
[2017-10-16 19:11] LABS: URINE APPEARANCE SLCLOUDY; URINE BILIRUBIN NEGATIVE (NEGATIVE); URINE BLOOD NEGATIVE (NEGATIVE); URINE COLOR YELLOW; URINE GLUCOSE (UA) NEGATIVE (NEGATIVE); URINE KETONE NEGATIVE (NEGATIVE); URINE LEUK ESTERASE TRACE (NEGATIVE); URINE NITRITE NEGATIVE (NEGATIVE); URINE PROTEIN NEGATIVE (NEGATIVE); URINE UROBILINOGEN 4.0 E.U/dl mg/dL (0.2-1.0)
[2017-10-16 19:15] LABS: URINE MUCUS RARE; URINE RBC 1 /hpf (0-3); URINE WBC 8 /hpf (3-5)
[2017-10-16 21:10] LABS: URINE LEUK ESTERASE NEGATIVE (NEGATIVE)
[2017-10-16] MEDS: THIAMINE HCL 100 MG TABLET (FP) PO SCH (22:27)
[2017-10-17] MEDS: chlordiazePOXIDE HCL 25 MG CAPSULE PO SCH ×4 (05:47→22:14)
[2017-10-17] MEDS ORDERED: METHADONE HCL 10 MG TABLET (FOR DETOX USE ONLY) PO SCH (10:00)
[2017-10-17] MEDS: ASPIRIN COATED 81 MG TABLET.EC PO SCH (10:05)
[2017-10-17] MEDS: PRENATAL VITAMINS W/ FOLIC ACID TABLET (FP) PO SCH (10:05)
[2017-10-17] MEDS: LISINOPRIL 10 MG TABLET (FP) PO SCH (10:05)
[2017-10-17] MEDS: BUDESONIDE/FORMETEROL FUMARATE 160/4.5 mcg INHALER IH SCH ×2 (10:05→22:15)
[2017-10-17] MEDS: NICOTINE 21 MG/24 HOURS TOPICAL PATCH TD SCH (10:06)
[2017-10-17 10:43] LABS: MCH 30.7 pg (25.7-33.7); MCHC 32.8 g/dl (32.0-35.9); MEAN CELL VOLUME 93.5 fl (80-96); MEAN PLT VOLUME 9.3 fl (7.5-11.1); PLATELET COUNT 264 K/MM3 (134-434); RDW 13.5 % (11.9-15.9); WHITE BLOOD COUNT 8.1 K/mm3 (4.0-10.0)
[2017-10-17 10:57] LABS: ALBUMIN 3.5 g/dl (3.4-5.0); ALK PHOS 57 U/L (45-117); ANION GAP 4 (8-16); BILIRUBIN,TOTAL 0.2 mg/dL (0.2-1.0); CALCIUM 8.8 mg/dL (8.5-10.1); CO2 33 mmol/L (21-32); CREATININE 1.1 mg/dL (0.7-1.3); GLUCOSE,RANDOM 66 mg/dL (74-106); SGOT/AST 15 U/L (15-37); SGPT/ALT 18 U/L (12-78)
[2017-10-17 11:48] LABS: HIV 1 & 2 AB NEGATIVE; HIV 1 AGp24 NEGATIVE
--- NOTE | 2017-10-17 13:02 | PN ---
[facility] CIWA - CIWA Score Nausea/Vomitin-No Nausea/No Vomiting Muscle Tremors: 4-Moderate,w/Arms Extend Anxiety: 4-Mod. Anxious/Guarded Agitation: 3 Paroxysmal Sweats: 1-Minimal Palms Moist Orientation: 0-Oriented Tacttile Disturbances: 3-Moderate Itch/Numb/Burn Auditory Disturbances: 0-None Visual Disturbances: 0-None Headache: 0-None Present CIWA-Ar Total Score: 15 BHS COWS - Scale Resting Pulse: 0= [place] 80 or Below Sweatin= Chills/Flushing Restless Observation: 3= Extraneous Movement Pupil Size: 0= Normal to Room Light Bone or Joint Aches: 4=Acute Joint/Muscle Pain Runny Nose/ Eye Tearin= Nasal Congestion GI Upset > 30mins: 0= None Tremor Observation of Outstretched Hands: 1= Tremor [place], Not Seen Yawning Observation: 2= >3x During Session Anxiety or Irritability: 2=Irritable/Anxious Goose Flesh Skin: 0=Smooth Skin COWS Score: 14 S Progress Note (SOAP) Subjective: ANXIETY,SWEATS/CHILLS,FATIGUE,INTERMITTENT SLEEP. PT HAS POSITIVE OPIATE TOXICOLOGY IN DRUG SCREEN. Objective: 10/17/17 13:00 Vital Signs Temperature 97.1 F L 10/17/17 09:32 Pulse Rate 79 10/17/17 09:32 Respiratory Rate 18 10/17/17 09:32 Blood Pressure 112/70 10/17/17 09:32 O2 Sat by Pulse Oximetry (%) Laboratory Last Values WBC 8.1 K/mm3 (4.0-10.0) 10/17/17 07:00 RBC 4.29 M/mm3 (4.00-5.60) 10/17/17 07:00 Hgb 13.2 GM/dL (11.7-16.9) 10/17/17 07:00 Hct 40.1 % (35.4-49) 10/17/17 07:00 MCV 93.5 fl (80-96) 10/17/17 07:00 MCH 30.7 pg (25.7-33.7) 10/17/17 07:00 MCHC 32.8 g/dl (32.0-35.9) 10/17/17 07:00 RDW 13.5 % (11.9-15.9) 10/17/17 07:00 Plt Count 264 K/MM3 (134-434) 10/17/17 07:00 MPV 9.3 fl (7.5-11.1) 10/17/17 07:00 Sodium 142 mmol/L (136-145) 10/17/17 07:00 Potassium 4.1 mmol/L (3.5-5.1) 10/17/17 07:00 Chloride 105 mmol/L (98-107) 10/17/17 07:00 Carbon Dioxide 33 mmol/L (21-32) H D 10/17/17 07:00 Anion Gap 4 (8-16) L 10/17/17 07:00 BUN 14 mg/dL (7-18) D 10/17/17 07:00 Creatinine 1.1 mg/dL (0.7-1.3) 10/17/17 07:00 Creat Clearance w eGFR > 60 (>60) 10/17/17 07:00 POC Glucometer 121 UNITS (80-120) 10/17/17 05:51 Random Glucose 66 mg/dL (74-106) L D 10/17/17 07:00 Calcium 8.8 mg/dL (8.5-10.1) 10/17/17 07:00 Total Bilirubin 0.2 mg/dL (0.2-1.0) D 10/17/17 07:00 AST 15 U/L (15-37) 10/17/17 07:00 ALT 18 U/L (12-78) 10/17/17 07:00 Alkaline Phosphatase 57 U/L (45-117) D 10/17/17 07:00 Total Protein 7.0 g/dl (6.4-8.2) 10/17/17 07:00 Albumin 3.5 g/dl (3.4-5.0) 10/17/17 07:00 Urine Color Yellow 10/16/17 18:00 Urine Appearance Slcloudy 10/16/17 18:00 Urine pH 5.0 (5.0-8.0) 10/16/17 18:00 Ur Specific [place] 1.027 (1.001-1.035) 10/16/17 18:00 Urine Protein Negative (NEGATIVE) 10/16/17 18:00 Urine Glucose (UA) Negative (NEGATIVE) 10/16/17 18:00 Urine Ketones Negative (NEGATIVE) 10/16/17 18:00 Urine Blood Negative (NEGATIVE) 10/16/17 18:00 Urine Nitrite Negative (NEGATIVE) 10/16/17 18:00 Urine Bilirubin Negative (NEGATIVE) 10/16/17 18:00 Urine Urobilinogen 4.0 e.u/dl mg/dL (0.2-1.0) 10/16/17 18:00 Ur Leukocyte Esterase Negative (NEGATIVE) 10/16/17 18:00 Urine WBC (Auto) 8 /hpf (3-5) 10/16/17 18:00 Urine RBC (Auto) 1 /hpf (0-3) 10/16/17 18:00 Ur Epithelial Cells Rare /HPF (FEW) 10/16/17 18:00 Urine Mucus Rare 10/16/17 18:00 RPR Titer Nonreactive (NONREACTIVE) 10/17/17 07:00 HIV 1&2 Antibody Screen Negative 10/17/17 07:00 HIV P24 Antigen Negative 10/17/17 07:00 Assessment: 10/17/17 13:00 WITHDRAWAL SX Plan: CONTINUE DETOX
--- NOTE | 2017-10-17 15:14 | EKG ---
Test Reason : Blood Pressure : / mmHG Vent. Rate : 073 BPM Atrial Rate : 073 BPM P-R Int : 136 ms QRS Dur : 088 ms QT Int : 374 ms P-R-T Axes : 061 051 036 degrees QTc Int : 412 ms NORMAL SINUS RHYTHM NORMAL ECG WHEN COMPARED WITH ECG OF 16-OCT-2017 15:53, NO SIGNIFICANT CHANGE WAS FOUND Confirmed by SARIKA ALVARADO MD ([id number]) on 10/17/2017 3:13:33 PM Referred By: Confirmed By:SARIKA ALVARADO MD
--- NOTE | 2017-10-17 15:14 | EKG ---
Test Reason : Blood Pressure : / mmHG Vent. Rate : 081 BPM Atrial Rate : 081 BPM P-R Int : 136 ms QRS Dur : 088 ms QT Int : 374 ms P-R-T Axes : 054 043 037 degrees QTc Int : 434 ms NORMAL SINUS RHYTHM NORMAL ECG WHEN COMPARED WITH ECG OF 26-JAN-2017 12:35, NO SIGNIFICANT CHANGE WAS FOUND Confirmed by SARIKA ALVARADO MD ([id number]) on 10/17/2017 3:13:43 PM Referred By: Confirmed By:SARIKA ALVARADO MD
--- NOTE | 2017-10-17 17:17 | CONSULT ---
[facility] Psychiatric Consult - Data Date of interview: 10/17/17 Admission source: [facility] Identifying data: Readmission to [facility] for this 52 y/o [place]-born male seeking detox treatment on for heroin,alcohol and cocaine dependence.Patient is single without children,homeless,unemployed and supported on Public Assistance. Substance Abuse History: Discussed in this session.Confirmed by patient.Details in current [facility] report. Smoking history: Current every day smoker. Have you smoked in the past 12 months: Yes. Aproximately how many cigarettes per day: 10. Hx Chewing Tobacco Use: No. Initiated information on smoking cessation: Yes. 'Breaking Loose' booklet given: 10/16/17. - Substance & Tx. History. Hx Alcohol Use: Yes. Hx Substance Use: Yes. Substance Use Type: Alcohol, Cocaine , Heroin. Hx Substance Use Treatment: Yes (Detox,OTP). - Substances Abused. * * Alcohol. Route: Oral. Frequency: Daily. Amount used: VODKA(1-2 PINTS). Age of first use: 12. Date of Last Use: 10/16/17. Cocaine. Route: Inhalation. Frequency: Daily. Amount used: $100. Age of first use: 18. Date of Last Use: 10/16/17. Heroin. Route: Injection. Frequency: 3-6 times per week. Amount used: 5-7 bags. Age of first use: 28. Date of Last Use: 10/16/17 Medical History: Bronchial asthma,withdrawal seizures,hepatitis C,diabetes mellitus and orthosurgery for torn meniscus/right knee (2016) + surgical correction of flat foot (left). Psychiatric History: History of multiple psychiatric hospitalizations.Diagnosed with Schizoaffective Disorder and ADHD.Last hospitalized approximately 10 years ago.Patient is currently followed at the [facility] clinic for medication management (gabapentin 600 mg po tid + adderall (dose not recalled) + zolpidem 10 mg/hs.Chronically non-adherent to OPD care and medications.Most recent script for gabapentin was issued in July 2017.No longer on methadone maintenance.Mr Atwood denies history of suicide attempts. Physical/Sexual Abuse/Trauma History: No reported history of abuse. Additional Comment: Urine Drug Screen Results: RACHEL-Cocaine, TCA-Tricyclic Antidepressant.Noted. Mental Status Exam - Mental Status Exam Alert and Oriented to: Time, Place, Person Cognitive Function: Good Patient Appearance: Well Groomed (longitudinal scar (cheloid) along the entire right cheek and lateral aspect of neck) Mood: Hopeful, Euthymic Affect: Appropriate, Normal Range Patient Behavior: Appropriate, Cooperative Speech Pattern: Clear Voice Loudness: Normal Thought Process: Goal Oriented Thought Disorder: Not Present Hallucinations: Denies Suicidal Ideation: Denies Homicidal Ideation: Denies Insight/Judgement: Poor Sleep: Fair Appetite: Good Gait/Station: Other (walks with a cane ; recent orthosurgery on right ankle ; patient wears a brace) Psychiatric Findings - Problem List ([place] 1, 2,3) (1) Opioid dependence with withdrawal Current Visit: Yes Status: Acute (2) Alcohol dependence with uncomplicated withdrawal Current Visit: Yes Status: Acute (3) Cocaine dependence Current Visit: Yes Status: Acute Qualifiers: Substance use status: uncomplicated Qualified Code(s): F14.20 - Cocaine dependence, uncomplicated (4) Nicotine dependence Current Visit: Yes Status: Acute Qualifiers: Nicotine product type: cigarettes Substance use status: uncomplicated Qualified Code(s): F17.210 - Nicotine dependence, cigarettes, uncomplicated (5) Substance induced mood disorder Current Visit: Yes Status: Acute (6) Insomnia Current Visit: Yes Status: Acute - Initial Treatment Plan Initial Treatment Plan: Psychoeducation.Sleep hygiene.Detoxification in progress.Ambien 10 mg po hs prn.Side effects/benefits discussed with patient.Agrees with this careplan.Observation.
[2017-10-17] MEDS ORDERED: ZOLPIDEM TARTRATE 10 MG TABLET (PARK CARE ONLY) PO PRN (22:00)
[2017-10-17] MEDS: THIAMINE HCL 100 MG TABLET (FP) PO SCH (22:14)
[2017-10-18] MEDS: chlordiazePOXIDE HCL 25 MG CAPSULE PO SCH ×2 (05:50→10:20)
[2017-10-18] MEDS: LISINOPRIL 10 MG TABLET (FP) PO SCH (10:20)
[2017-10-18] MEDS: METHADONE HCL 5 MG TABLET (FOR DETOX USE ONLY) PO SCH (10:20)
[2017-10-18] MEDS: PRENATAL VITAMINS W/ FOLIC ACID TABLET (FP) PO SCH (10:20)
[2017-10-18] MEDS: BUDESONIDE/FORMETEROL FUMARATE 160/4.5 mcg INHALER IH SCH ×2 (10:20→22:23)
[2017-10-18] MEDS: NICOTINE 21 MG/24 HOURS TOPICAL PATCH TD SCH (10:20)
[2017-10-18] MEDS: ASPIRIN COATED 81 MG TABLET.EC PO SCH (10:20)
--- NOTE | 2017-10-18 11:55 | PN ---
[facility] CIWA - CIWA Score Nausea/Vomitin-No Nausea/No Vomiting Muscle Tremors: 4-Moderate,w/Arms Extend Anxiety: 3 Agitation: 3 Paroxysmal Sweats: 3 Orientation: 0-Oriented Tacttile Disturbances: 2-Mild Itch/Numbness/Burn Auditory Disturbances: 2-Mild Harshness/Frighten Visual Disturbances: 0-None Headache: 0-None Present CIWA-Ar Total Score: 17 BHS COWS - Scale Resting Pulse: 0= [place] 80 or Below Sweatin= Chills/Flushing Restless Observation: 1= Difficult to Sit Still Pupil Size: 0= Normal to Room Light Bone or Joint Aches: 2= Severe Diffuse Aches Runny Nose/ Eye Tearin= Nasal Congestion GI Upset > 30mins: 0= None Tremor Observation of Outstretched Hands: 2= Slight Tremor Visible Yawning Observation: 1= 1-2x During Session Anxiety or Irritability: 2=Irritable/Anxious Goose Flesh Skin: 3=[place] COWS Score: 13 S Progress Note (SOAP) Subjective: Tremors, Interrupted Sleep, Body Aches. Objective: PT. A & O X 2 (UNCERTAIN ABOUT CURRENT DAY / DATE). NO ACUTE DISTRESS. 10/18/17 11:53 Vital Signs Temperature 98.4 F 10/18/17 09:33 Pulse Rate 79 10/18/17 09:33 Respiratory Rate 18 10/18/17 09:33 Blood Pressure 109/67 10/18/17 09:33 O2 Sat by Pulse Oximetry (%) Laboratory Tests 10/16/17 10/16/17 10/17/17 12:33 18:00 05:51 WBC RBC Hgb Hct MCV MCH MCHC RDW Plt Count MPV Sodium Potassium Chloride Carbon Dioxide Anion Gap BUN Creatinine Creat Clearance w eGFR POC Glucometer 119 121 Random Glucose Calcium Total Bilirubin AST ALT Alkaline Phosphatase Total Protein Albumin Urine Color Yellow Urine Appearance Slcloudy Urine pH 5.0 Ur Specific [place] 1.027 Urine Protein Negative Urine Glucose (UA) Negative Urine Ketones Negative Urine Blood Negative Urine Nitrite Negative Urine Bilirubin Negative Urine Urobilinogen 4.0 e.u/dl Ur Leukocyte Esterase Negative Urine WBC (Auto) 8 Urine RBC (Auto) 1 Ur Epithelial Cells Rare Urine Mucus Rare RPR Titer HIV 1&2 Antibody Screen HIV P24 Antigen 10/17/17 10/17/1717 07:00 07:00 07:00 WBC 8.1 RBC 4.29 Hgb 13.2 Hct 40.1 MCV 93.5 MCH 30.7 MCHC 32.8 RDW 13.5 Plt Count 264 MPV 9.3 Sodium 142 Potassium 4.1 Chloride 105 Carbon Dioxide 33 H D Anion Gap 4 L BUN 14 D Creatinine 1.1 Creat Clearance w eGFR > 60 POC Glucometer Random Glucose 66 L D Calcium 8.8 Total Bilirubin 0.2 D AST 15 ALT 18 Alkaline Phosphatase 57 D Total Protein 7.0 Albumin 3.5 Urine Color Urine Appearance Urine pH Ur Specific [place] Urine Protein Urine Glucose (UA) Urine Ketones Urine Blood Urine Nitrite Urine Bilirubin Urine Urobilinogen Ur Leukocyte Esterase Urine WBC (Auto) Urine RBC (Auto) Ur Epithelial Cells Urine Mucus RPR Titer HIV 1&2 Antibody Screen Negative HIV P24 Antigen Negative 10/17/17 07:00 WBC RBC Hgb Hct MCV MCH MCHC RDW Plt Count MPV Sodium Potassium Chloride Carbon Dioxide Anion Gap BUN Creatinine Creat Clearance w eGFR POC Glucometer Random Glucose Calcium Total Bilirubin AST ALT Alkaline Phosphatase Total Protein Albumin Urine Color Urine Appearance Urine pH Ur Specific [place] Urine Protein Urine Glucose (UA) Urine Ketones Urine Blood Urine Nitrite Urine Bilirubin Urine Urobilinogen Ur Leukocyte Esterase Urine WBC (Auto) Urine RBC (Auto) Ur Epithelial Cells Urine Mucus RPR Titer Nonreactive HIV 1&2 Antibody Screen HIV P24 Antigen LABS NOTED. Assessment: 10/18/17 11:54 WITHDRAWAL SYMPTOMS. Plan: CONTINUE DETOX. INCREASE DAILY PO FLUID INTAKE. ENCOURAGE AMBULATION.
--- NOTE | 2017-10-18 14:21 | EKG ---
Test Reason : Blood Pressure : / mmHG Vent. Rate : 072 BPM Atrial Rate : 072 BPM P-R Int : 138 ms QRS Dur : 088 ms QT Int : 368 ms P-R-T Axes : 051 049 045 degrees QTc Int : 402 ms NORMAL SINUS RHYTHM NORMAL ECG WHEN COMPARED WITH ECG OF 17-OCT-2017 07:36, NO SIGNIFICANT CHANGE WAS FOUND Confirmed by AVRIL RAYMOND MD ([id number]) on 10/18/2017 2:21:44 PM Referred By: Confirmed By:AVRIL RAYMOND MD
[2017-10-18] MEDS: chlordiazePOXIDE 5 MG CAPSULE PO SCH ×2 (17:07→22:24)
[2017-10-18] MEDS: THIAMINE HCL 100 MG TABLET (FP) PO SCH (22:23)
[2017-10-19] MEDS: chlordiazePOXIDE 5 MG CAPSULE PO SCH ×2 (05:37→10:12)
[2017-10-19] MEDS: METHADONE HCL 5 MG TABLET (FOR DETOX USE ONLY) PO SCH (10:12)
[2017-10-19] MEDS: NICOTINE 21 MG/24 HOURS TOPICAL PATCH TD SCH (10:12)
[2017-10-19] MEDS: ASPIRIN COATED 81 MG TABLET.EC PO SCH (10:12)
[2017-10-19] MEDS: BUDESONIDE/FORMETEROL FUMARATE 160/4.5 mcg INHALER IH SCH (10:12)
[2017-10-19] MEDS: LISINOPRIL 10 MG TABLET (FP) PO SCH (10:12)
[2017-10-19] MEDS: PRENATAL VITAMINS W/ FOLIC ACID TABLET (FP) PO SCH (10:12)
--- NOTE | 2017-10-19 12:01 | PN ---
[facility] Progress Note (SOAP) Subjective: Anxious, Fatigue, H/A, Interrupted Sleep. Objective: PT. A & O X 2 (UNCERTAIN ABOUT DAY / DATE). PT. OBSERVED AMBULATING ON UNITY. NO ACUTE DISTRESS. 10/19/17 12:00 Vital Signs Temperature 97.7 F 10/19/17 09:57 Pulse Rate 86 10/19/17 09:57 Respiratory Rate 16 10/19/17 09:57 Blood Pressure 107/65 10/19/17 09:57 O2 Sat by Pulse Oximetry (%) Laboratory Tests 10/16/17 10/16/17 10/17/17 12:33 18:00 05:51 WBC RBC Hgb Hct MCV MCH MCHC RDW Plt Count MPV Sodium Potassium Chloride Carbon Dioxide Anion Gap BUN Creatinine Creat Clearance w eGFR POC Glucometer 119 121 Random Glucose Calcium Total Bilirubin AST ALT Alkaline Phosphatase Total Protein Albumin Urine Color Yellow Urine Appearance Slcloudy Urine pH 5.0 Ur Specific [place] 1.027 Urine Protein Negative Urine Glucose (UA) Negative Urine Ketones Negative Urine Blood Negative Urine Nitrite Negative Urine Bilirubin Negative Urine Urobilinogen 4.0 e.u/dl Ur Leukocyte Esterase Negative Urine WBC (Auto) 8 Urine RBC (Auto) 1 Ur Epithelial Cells Rare Urine Mucus Rare RPR Titer HIV 1&2 Antibody Screen HIV P24 Antigen 10/17/17 10/17/17 10/17/17 07:00 07:00 07:00 WBC 8.1 RBC 4.29 Hgb 13.2 Hct 40.1 MCV 93.5 MCH 30.7 MCHC 32.8 RDW 13.5 Plt Count 264 MPV 9.3 Sodium 142 Potassium 4.1 Chloride 105 Carbon Dioxide 33 H D Anion Gap 4 L BUN 14 D Creatinine 1.1 Creat Clearance w eGFR > 60 POC Glucometer Random Glucose 66 L D Calcium 8.8 Total Bilirubin 0.2 D AST 15 ALT 18 Alkaline Phosphatase 57 D Total Protein 7.0 Albumin 3.5 Urine Color Urine Appearance Urine pH Ur Specific [place] Urine Protein Urine Glucose (UA) Urine Ketones Urine Blood Urine Nitrite Urine Bilirubin Urine Urobilinogen Ur Leukocyte Esterase Urine WBC (Auto) Urine RBC (Auto) Ur Epithelial Cells Urine Mucus RPR Titer HIV 1&2 Antibody Screen Negative HIV P24 Antigen Negative 10/17/17 07:00 WBC RBC Hgb Hct MCV MCH MCHC RDW Plt Count MPV Sodium Potassium Chloride Carbon Dioxide Anion Gap BUN Creatinine Creat Clearance w eGFR POC Glucometer Random Glucose Calcium Total Bilirubin AST ALT Alkaline Phosphatase Total Protein Albumin Urine Color Urine Appearance Urine pH Ur Specific [place] Urine Protein Urine Glucose (UA) Urine Ketones Urine Blood Urine Nitrite Urine Bilirubin Urine Urobilinogen Ur Leukocyte Esterase Urine WBC (Auto) Urine RBC (Auto) Ur Epithelial Cells Urine Mucus RPR Titer Nonreactive HIV 1&2 Antibody Screen HIV P24 Antigen LABS NOTED. Assessment: 10/19/17 12:00 WITHDRAWAL SYMPTOMS. Plan: CONTINUE DETOX. INCREASE DAILY PO FLUID INTAKE.
[2017-10-19] MEDS ORDERED: chlordiazePOXIDE HCL 10 MG CAPSULE PO SCH (17:00)
[2017-10-19 17:42] VITALS: BP 107/66; PULSE 75; TEMP 97.4
--- NOTE | 2017-10-19 21:41 | DS ---
[facility] Detox Discharge Summary Admission Date: 10/16/17 Discharge Date: 10/19/17 - History Present History: Alcohol Dependence, Opioid Dependence Additional Comments: received nurse call that the patient wants to leave face to face with the patient discuss sobriety patient states that the detox environment is not healthy to him he can not rest in such unhealthy environment also thing to do at home must leave now to take care of things at home patient insists to leave the facility patient is alert, knows the day of time, continues insisting to go home Pertinent Past History: hepatitis c asthma diabetes ii hypertension - Physical Exam Results Vital Signs: Vital Signs Temperature 97.4 F L 10/19/17 17:42 Pulse Rate 75 10/19/17 17:42 Respiratory Rate 16 10/19/17 17:42 Blood Pressure 107/66 10/19/17 17:42 O2 Sat by Pulse Oximetry (%) Pertinent Admission Physical Exam Findings: withdrawal sx Vital Signs Temperature 97.4 F L 10/19/17 17:42 Pulse Rate 75 10/19/17 17:42 Respiratory Rate 16 10/19/17 17:42 Blood Pressure 107/66 10/19/17 17:42 O2 Sat by Pulse Oximetry (%) Laboratory Last Values WBC 8.1 K/mm3 (4.0-10.0) 10/17/17 07:00 RBC 4.29 M/mm3 (4.00-5.60) 10/17/17 07:00 Hgb 13.2 GM/dL (11.7-16.9) 10/17/17 07:00 Hct 40.1 % (35.4-49) 10/17/17 07:00 MCV 93.5 fl (80-96) 10/17/17 07:00 MCH 30.7 pg (25.7-33.7) 10/17/17 07:00 MCHC 32.8 g/dl (32.0-35.9) 10/17/17 07:00 RDW 13.5 % (11.9-15.9) 10/17/17 07:00 Plt Count 264 K/MM3 (134-434) 10/17/17 07:00 MPV 9.3 fl (7.5-11.1) 10/17/17 07:00 Sodium 142 mmol/L (136-145) 10/17/17 07:00 Potassium 4.1 mmol/L (3.5-5.1) 10/17/17 07:00 Chloride 105 mmol/L (98-107) 10/17/17 07:00 Carbon Dioxide 33 mmol/L (21-32) H D 10/17/17 07:00 Anion Gap 4 (8-16) L 10/17/17 07:00 BUN 14 mg/dL (7-18) D 10/17/17 07:00 Creatinine 1.1 mg/dL (0.7-1.3) 10/17/17 07:00 Creat Clearance w eGFR > 60 (>60) 10/17/17 07:00 POC Glucometer 121 UNITS (80-120) 10/17/17 05:51 Random Glucose 66 mg/dL (74-106) L D 10/17/17 07:00 Calcium 8.8 mg/dL (8.5-10.1) 10/17/17 07:00 Total Bilirubin 0.2 mg/dL (0.2-1.0) D 10/17/17 07:00 AST 15 U/L (15-37) 10/17/17 07:00 ALT 18 U/L (12-78) 10/17/17 07:00 Alkaline Phosphatase 57 U/L (45-117) D 10/17/17 07:00 Total Protein 7.0 g/dl (6.4-8.2) 10/17/17 07:00 Albumin 3.5 g/dl (3.4-5.0) 10/17/17 07:00 Urine Color Yellow 10/16/17 18:00 Urine Appearance Slcloudy 10/16/17 18:00 Urine pH 5.0 (5.0-8.0) 10/16/17 18:00 Ur Specific [place] 1.027 (1.001-1.035) 10/16/17 18:00 Urine Protein Negative (NEGATIVE) 10/16/17 18:00 Urine Glucose (UA) Negative (NEGATIVE) 10/16/17 18:00 Urine Ketones Negative (NEGATIVE) 10/16/17 18:00 Urine Blood Negative (NEGATIVE) 10/16/17 18:00 Urine Nitrite Negative (NEGATIVE) 10/16/17 18:00 Urine Bilirubin Negative (NEGATIVE) 10/16/17 18:00 Urine Urobilinogen 4.0 e.u/dl mg/dL (0.2-1.0) 10/16/17 18:00 Ur Leukocyte Esterase Negative (NEGATIVE) 10/16/17 18:00 Urine WBC (Auto) 8 /hpf (3-5) 10/16/17 18:00 Urine RBC (Auto) 1 /hpf (0-3) 10/16/17 18:00 Ur Epithelial Cells Rare /HPF (FEW) 10/16/17 18:00 Urine Mucus Rare 10/16/17 18:00 RPR Titer Nonreactive (NONREACTIVE) 10/17/17 07:00 HIV 1&2 Antibody Screen Negative 10/17/17 07:00 HIV P24 Antigen Negative 10/17/17 07:00 lab noted - Treatment Hospital Course: Detox Protocol Followed, Detoxed Safely, Responded well, Discharged Condition Good, Rehab Referral Accepted Patient has Accepted a Rehab Referral to: as per counselor arranged - Medication Discharge Medications: Ambulatory Orders Cyclobenzaprine HCl [Flexeril 10 mg] 10 mg PO TID 01/26/17 Dextroamphetamine/Amphetamine [Adderall 10 mg Tablet] 20 mg PO BID 01/26/17 Oxycodone HCl/Acetaminophen [Percocet 5-325 mg Tablet] 1 - 2 tab PO Q4H Quetiapine Fumarate [Seroquel -] 100 mg PO HS 01/26/17 Aspirin [Aspirin EC] 81 mg PO DAILY 10/16/17 Budesonide/Formeterol Fumarate [SYMBICORT 160/4.5mcg -] 1 inh PO BID 10/16/17 Lisinopril [Prinivil] 10 mg PO DAILY 10/16/17 Metformin HCl [Metformin HCl ER] 500 mg PO DAILY 10/16/17 - Diagnosis (1) Alcohol dependence with uncomplicated withdrawal Current Visit: Yes Status: Acute (2) Nicotine dependence Current Visit: Yes Status: Acute Qualifiers: Nicotine product type: cigarettes Substance use status: in withdrawal Qualified Code(s): F17.213 - Nicotine dependence, cigarettes, with withdrawal (3) Opioid dependence with withdrawal Current Visit: Yes Status: Acute (4) Asthma Current Visit: Yes Status: Chronic Qualifiers: Asthma severity: mild Asthma persistence: unspecified Asthma complication type: uncomplicated Qualified Code(s): J45.909 - Unspecified asthma, uncomplicated (5) Hepatitis C Current Visit: Yes Status: Chronic Qualifiers: Viral hepatitis chronicity: chronic Hepatic coma status: without hepatic coma Qualified Code(s): B18.2 - Chronic viral hepatitis C - AMA Did Patient Leave Against Medical Advice: Yes
[2017-10-20] MEDS ORDERED: METHADONE HCL 10 MG TABLET (FOR DETOX USE ONLY) PO SCH (10:00)
[2017-10-21] MEDS ORDERED: METHADONE HCL 5 MG TABLET (FOR DETOX USE ONLY) PO SCH (06:00)
== END 2017-10-19 21:00 | disposition left against medical advice (07) | DRG 770 ==
LOC: YASAS 09:11 → Y3N 13:54
PROVIDERS: ADMIT Internal Medicine; ATTEND Internal Medicine
PROC: HZ2ZZZZ Detoxification Services for Substance Abuse Treatment (ICD-10-PCS; principal; 2017-10-16)
DX: F11.23 Opioid dependence with withdrawal (principal); F10.230 Alcohol dependence with withdrawal, uncomplicated; F17.210 Nicotine dependence, cigarettes, uncomplicated; F19.24 Other psychoactive substance dependence with psychoactive substance-induced mood disorder; F25.9 Schizoaffective disorder, unspecified; G47.00 Insomnia, unspecified; J45.909 Unspecified asthma, uncomplicated; B18.2 Chronic viral hepatitis C; Z86.69 Personal history of other diseases of the nervous system and sense organs; Z91.5 Personal history of self-harm
CPT/HCPCS: 36415; 80053; 81003; 81015; 85027; 86593; 87389; 93005; 93010

== ENCOUNTER 2021-05-28 11:34 | Inpatient (IN) | payer OTHER ==
[2021-05-28 12:27] VITALS: BMI 23.6
[2021-05-28] MEDS ORDERED: IBUPROFEN 400 MG TABLET (FP) PO PRN (17:10)
[2021-05-28] MEDS ORDERED: P-EPHED 60MG/TRIPROLIDI 2.5MG TABLET PO PRN (17:10)
[2021-05-28] MEDS ORDERED: guaiFENesin 200 MG/10 ML 10 ML UNIT-DOSE CUPS PO PRN (17:10)
[2021-05-28] MEDS ORDERED: MAG HYDROX/AL HYDROX/SIMETH 30 ML UNIT-DOSE CUP PO PRN (17:10)
[2021-05-28] MEDS ORDERED: NICOTINE POLACRILEX 2 MG GUM BC PRN (17:10)
[2021-05-28] MEDS ORDERED: MAGNESIUM CITRATE 300 ML BOTTLE PO PRN (17:10)
[2021-05-28] MEDS ORDERED: ACETAMINOPHEN 325 MG TABLET (FP) PO PRN (17:10)
[2021-05-28] MEDS ORDERED: MAGNESIUM HYDROX 2400MG/30ML ORAL SUSPENSION 30 ML CUP PO PRN (17:10)
[2021-05-28] MEDS ORDERED: LOPERAMIDE HCL 2 MG CAPSULE PO PRN (17:10)
[2021-05-28] MEDS ORDERED: ALBUTEROL SO4 HFA INHALER IH PRN (17:17)
[2021-05-28] MEDS ORDERED: hydrOXYzine PAMOATE 25 MG CAPSULE (FP) PO SCH (18:00)
[2021-05-28] MEDS ORDERED: TUBERCULIN PPD 5 TU/0.1ML VIAL ID ONE (18:25)
[2021-05-28] MEDS: THIAMINE HCL 100 MG TABLET (FP) PO SCH (21:42)
[2021-05-28] MEDS: hydrOXYzine PAMOATE 25 MG CAPSULE (FP) PO PRN (21:42)
[2021-05-28] MEDS: MELATONIN 5 MG TABLETS PO SCH (21:42)
[2021-05-28] MEDS: BACITRACIN 0.9 GM PACKET TP SCH (21:43)
[2021-05-28] MEDS: BUDESONIDE/FORMETEROL FUMARATE 160/4.5 mcg INHALER IH SCH (22:39)
[2021-05-29] MEDS: INSULIN SLIDING SCALE (NOVOLOG) 1 VIAL SQ SCH ×2 (06:16→16:53)
[2021-05-29] MEDS ORDERED: methaDONE HCL 10 MG TABLET PO ONE (07:48)
[2021-05-29] MEDS ORDERED: methaDONE 40 MG, methaDONE 20 MG PO ONE (08:30)
[2021-05-29] MEDS ORDERED: methaDONE HCL 10 MG TABLET ONE (08:47)
[2021-05-29] MEDS ORDERED: methaDONE HCL 40 MG DISPERSABLE TABLET ONE (08:47)
[2021-05-29] MEDS ORDERED: LISINOPRIL 10 MG TABLET PO SCH (10:00)
[2021-05-29] MEDS: ASPIRIN COATED 81 MG TABLET.EC PO SCH (10:02)
[2021-05-29 10:18] LABS: HEMATOCRIT 37.1 % (35.4-49); HEMOGLOBIN 12.4 GM/dL (11.7-16.9); MCH 30.4 pg (25.7-33.7); MCHC 33.5 g/dl (32.0-35.9); MEAN CELL VOLUME 90.6 fl (80-96); MEAN PLT VOLUME 8.9 fl (7.5-11.1); PLATELET COUNT 238 10^3/uL (134-434); RDW 13.2 % (11.9-15.9); WHITE BLOOD COUNT 4.4 K/mm3 (4.0-10.0)
[2021-05-29 10:24] LABS: CALCIUM 8.4 mg/dL (8.5-10.1)
[2021-05-29 10:25] LABS: ALBUMIN 3.1 g/dl (3.4-5.0); BLOOD UREA NITROGEN 20.8 mg/dL (7-18)
[2021-05-29] MEDS: NICOTINE 7 MG/24 HOURS TOPICAL PATCH TD SCH (10:27)
[2021-05-29] MEDS: BACITRACIN 0.9 GM PACKET TP SCH ×2 (10:27→21:43)
[2021-05-29] MEDS: PRENATAL VITAMINS W/ FOLIC ACID TABLET (FP) PO SCH (10:27)
[2021-05-29] MEDS: BUDESONIDE/FORMETEROL FUMARATE 160/4.5 mcg INHALER IH SCH ×2 (10:27→21:43)
[2021-05-29 10:30] LABS: BILIRUBIN,TOTAL 0.2 mg/dL (0.2-1); TOT PROT 6.4 g/dl (6.4-8.2)
[2021-05-29 11:45] LABS: HIV INTERPRETATION NEGATIVE (NEGATIVE)
[2021-05-29 13:02] LABS: PH,URINE 5.5 (5.0-8.0); URINE APPEARANCE CLEAR; URINE BILIRUBIN NEGATIVE (NEGATIVE); URINE COLOR YELLOW; URINE GLUCOSE (UA) NEGATIVE (NEGATIVE); URINE KETONE TRACE (NEGATIVE); URINE LEUK ESTERASE NEGATIVE (NEGATIVE); URINE NITRITE NEGATIVE (NEGATIVE); URINE PROTEIN NEGATIVE (NEGATIVE)
[2021-05-29] MEDS: GABAPENTIN 300 MG CAPSULE PO SCH ×2 (14:31→21:39)
[2021-05-29] MEDS: THIAMINE HCL 100 MG TABLET (FP) PO SCH (21:39)
[2021-05-29] MEDS: traZODone HCL 50 MG TABLET (FP) PO SCH (21:41)
[2021-05-29] MEDS ORDERED: PT OWN MED DRAWER 7, Y5N ONE (21:42)
[2021-05-29] MEDS: MELATONIN 5 MG TABLETS PO SCH (21:42)
[2021-05-30] MEDS ORDERED: methaDONE HCL 10 MG TABLET ONE (05:47)
[2021-05-30] MEDS ORDERED: methaDONE HCL 40 MG DISPERSABLE TABLET ONE (05:47)
[2021-05-30] MEDS ORDERED: methaDONE HCL 40 MG DISPERSABLE TABLET PO SCH (06:00)
[2021-05-30] MEDS: GABAPENTIN 300 MG CAPSULE PO SCH ×3 (06:09→21:09)
[2021-05-30] MEDS: methaDONE 40 MG, methaDONE 20 MG PO SCH (06:10)
[2021-05-30] MEDS ORDERED: INSULIN (NOVOLOG) ASPART 100 UNITS/ML 10ML VIAL ONE (07:31)
[2021-05-30] MEDS: INSULIN SLIDING SCALE (NOVOLOG) 1 VIAL SQ SCH ×2 (07:51→17:37)
[2021-05-30] MEDS: BUDESONIDE/FORMETEROL FUMARATE 160/4.5 mcg INHALER IH SCH ×2 (09:40→23:09)
[2021-05-30] MEDS: PRENATAL VITAMINS W/ FOLIC ACID TABLET (FP) PO SCH (09:40)
[2021-05-30] MEDS: NICOTINE 7 MG/24 HOURS TOPICAL PATCH TD SCH (09:40)
[2021-05-30] MEDS: ASPIRIN COATED 81 MG TABLET.EC PO SCH (09:40)
[2021-05-30] MEDS: BACITRACIN 0.9 GM PACKET TP SCH ×2 (09:40→21:09)
[2021-05-30] MEDS: THIAMINE HCL 100 MG TABLET (FP) PO SCH (21:09)
[2021-05-30] MEDS: traZODone HCL 50 MG TABLET (FP) PO SCH (21:10)
[2021-05-30] MEDS: MELATONIN 5 MG TABLETS PO SCH (21:10)
[2021-05-31] MEDS ORDERED: methaDONE HCL 40 MG DISPERSABLE TABLET ONE (03:28)
[2021-05-31] MEDS ORDERED: methaDONE HCL 10 MG TABLET ONE (03:28)
[2021-05-31] MEDS: INSULIN SLIDING SCALE (NOVOLOG) 1 VIAL SQ SCH ×2 (06:34→16:59)
[2021-05-31] MEDS: GABAPENTIN 300 MG CAPSULE PO SCH ×3 (06:35→21:33)
[2021-05-31] MEDS: methaDONE 40 MG, methaDONE 20 MG PO SCH (06:35)
[2021-05-31] MEDS ORDERED: PT OWN MED DRAWER 7, Y5N ONE (08:15)
[2021-05-31] MEDS: BACITRACIN 0.9 GM PACKET TP SCH ×2 (09:21→21:34)
[2021-05-31] MEDS: BUDESONIDE/FORMETEROL FUMARATE 160/4.5 mcg INHALER IH SCH ×2 (09:21→21:35)
[2021-05-31] MEDS: PRENATAL VITAMINS W/ FOLIC ACID TABLET (FP) PO SCH (09:21)
[2021-05-31] MEDS: NICOTINE 7 MG/24 HOURS TOPICAL PATCH TD SCH (09:21)
[2021-05-31] MEDS: ASPIRIN COATED 81 MG TABLET.EC PO SCH (09:21)
[2021-05-31] MEDS: traZODone HCL 50 MG TABLET (FP) PO SCH (21:33)
[2021-05-31] MEDS: THIAMINE HCL 100 MG TABLET (FP) PO SCH (21:34)
[2021-05-31] MEDS: MELATONIN 5 MG TABLETS PO SCH (21:34)
[2021-06-01] MEDS ORDERED: methaDONE HCL 10 MG TABLET ONE (03:31)
[2021-06-01] MEDS ORDERED: methaDONE HCL 40 MG DISPERSABLE TABLET ONE (03:31)
[2021-06-01] MEDS: GABAPENTIN 300 MG CAPSULE PO SCH ×3 (06:19→21:18)
[2021-06-01] MEDS: methaDONE 40 MG, methaDONE 20 MG PO SCH (06:19)
[2021-06-01] MEDS: INSULIN SLIDING SCALE (NOVOLOG) 1 VIAL SQ SCH ×2 (06:30→17:13)
[2021-06-01] MEDS: BUDESONIDE/FORMETEROL FUMARATE 160/4.5 mcg INHALER IH SCH ×2 (09:48→21:21)
[2021-06-01] MEDS: ASPIRIN COATED 81 MG TABLET.EC PO SCH (09:48)
[2021-06-01] MEDS: NICOTINE 7 MG/24 HOURS TOPICAL PATCH TD SCH (09:48)
[2021-06-01] MEDS: BACITRACIN 0.9 GM PACKET TP SCH ×2 (09:48→21:19)
[2021-06-01] MEDS: PRENATAL VITAMINS W/ FOLIC ACID TABLET (FP) PO SCH (09:48)
[2021-06-01] MEDS: MELATONIN 5 MG TABLETS PO SCH (21:17)
[2021-06-01] MEDS: traZODone HCL 50 MG TABLET (FP) PO SCH (21:18)
[2021-06-01] MEDS: hydrOXYzine PAMOATE 25 MG CAPSULE (FP) PO PRN (21:19)
[2021-06-01] MEDS: THIAMINE HCL 100 MG TABLET (FP) PO SCH (21:19)
[2021-06-02] MEDS ORDERED: methaDONE HCL 40 MG DISPERSABLE TABLET ONE (03:57)
[2021-06-02] MEDS ORDERED: methaDONE HCL 10 MG TABLET ONE (03:57)
[2021-06-02] MEDS: methaDONE 40 MG, methaDONE 20 MG PO SCH (06:19)
[2021-06-02] MEDS: GABAPENTIN 300 MG CAPSULE PO SCH ×3 (06:19→21:17)
[2021-06-02] MEDS: INSULIN SLIDING SCALE (NOVOLOG) 1 VIAL SQ SCH ×2 (08:12→16:36)
[2021-06-02] MEDS: PRENATAL VITAMINS W/ FOLIC ACID TABLET (FP) PO SCH (10:05)
[2021-06-02] MEDS: NICOTINE 7 MG/24 HOURS TOPICAL PATCH TD SCH (10:05)
[2021-06-02] MEDS: BACITRACIN 0.9 GM PACKET TP SCH ×2 (10:06→21:17)
[2021-06-02] MEDS: ASPIRIN COATED 81 MG TABLET.EC PO SCH (10:06)
[2021-06-02] MEDS: BUDESONIDE/FORMETEROL FUMARATE 160/4.5 mcg INHALER IH SCH ×2 (10:06→21:18)
[2021-06-02] MEDS: METHOCARBAMOL 500 MG TABLET PO SCH ×3 (14:16→21:17)
[2021-06-02] MEDS: THIAMINE HCL 100 MG TABLET (FP) PO SCH (21:16)
[2021-06-02] MEDS: MELATONIN 5 MG TABLETS PO SCH (21:16)
[2021-06-02] MEDS: traZODone HCL 100 MG TABLET (FP) PO SCH (21:18)
[2021-06-03] MEDS ORDERED: methaDONE HCL 40 MG DISPERSABLE TABLET ONE (03:21)
[2021-06-03] MEDS ORDERED: methaDONE HCL 10 MG TABLET ONE (03:21)
[2021-06-03] MEDS: INSULIN SLIDING SCALE (NOVOLOG) 1 VIAL SQ SCH ×2 (06:29→16:36)
[2021-06-03] MEDS: GABAPENTIN 300 MG CAPSULE PO SCH ×3 (06:30→21:16)
[2021-06-03] MEDS: methaDONE 40 MG, methaDONE 20 MG PO SCH (06:30)
[2021-06-03] MEDS: PRENATAL VITAMINS W/ FOLIC ACID TABLET (FP) PO SCH (09:33)
[2021-06-03] MEDS: BACITRACIN 0.9 GM PACKET TP SCH ×2 (09:33→21:16)
[2021-06-03] MEDS: BUDESONIDE/FORMETEROL FUMARATE 160/4.5 mcg INHALER IH SCH ×2 (09:33→21:17)
[2021-06-03] MEDS: ASPIRIN COATED 81 MG TABLET.EC PO SCH (09:34)
[2021-06-03] MEDS: METHOCARBAMOL 500 MG TABLET PO SCH ×4 (09:34→21:16)
[2021-06-03] MEDS: NICOTINE 7 MG/24 HOURS TOPICAL PATCH TD SCH (09:34)
[2021-06-03] MEDS: MELATONIN 5 MG TABLETS PO SCH (21:16)
[2021-06-03] MEDS: traZODone HCL 100 MG TABLET (FP) PO SCH (21:16)
[2021-06-03] MEDS: THIAMINE HCL 100 MG TABLET (FP) PO SCH (21:16)
[2021-06-04] MEDS ORDERED: methaDONE HCL 40 MG DISPERSABLE TABLET ONE (06:17)
[2021-06-04] MEDS ORDERED: methaDONE HCL 10 MG TABLET ONE (06:17)
[2021-06-04] MEDS: INSULIN SLIDING SCALE (NOVOLOG) 1 VIAL SQ SCH ×2 (06:23→16:59)
[2021-06-04] MEDS: methaDONE 40 MG, methaDONE 20 MG PO SCH (06:23)
[2021-06-04] MEDS: GABAPENTIN 300 MG CAPSULE PO SCH ×3 (06:24→21:56)
[2021-06-04] MEDS ORDERED: PT OWN MED DRAWER 7, Y5N ONE (08:31)
[2021-06-04] MEDS: BUDESONIDE/FORMETEROL FUMARATE 160/4.5 mcg INHALER IH SCH ×2 (09:36→21:54)
[2021-06-04] MEDS: PRENATAL VITAMINS W/ FOLIC ACID TABLET (FP) PO SCH (09:36)
[2021-06-04] MEDS: BACITRACIN 0.9 GM PACKET TP SCH ×2 (09:36→21:53)
[2021-06-04] MEDS: ASPIRIN COATED 81 MG TABLET.EC PO SCH (09:36)
[2021-06-04] MEDS: NICOTINE 7 MG/24 HOURS TOPICAL PATCH TD SCH (09:36)
[2021-06-04] MEDS: METHOCARBAMOL 500 MG TABLET PO SCH ×4 (09:36→21:54)
[2021-06-04] MEDS: traZODone HCL 100 MG TABLET (FP) PO SCH (21:54)
[2021-06-04] MEDS: THIAMINE HCL 100 MG TABLET (FP) PO SCH (21:54)
[2021-06-04] MEDS: MELATONIN 5 MG TABLETS PO SCH (21:55)
[2021-06-05] MEDS ORDERED: methaDONE HCL 10 MG TABLET ONE (04:02)
[2021-06-05] MEDS ORDERED: methaDONE HCL 40 MG DISPERSABLE TABLET ONE (04:02)
[2021-06-05] MEDS: INSULIN SLIDING SCALE (NOVOLOG) 1 VIAL SQ SCH ×2 (06:32→17:03)
[2021-06-05] MEDS: methaDONE 40 MG, methaDONE 20 MG PO SCH (06:33)
[2021-06-05] MEDS: GABAPENTIN 300 MG CAPSULE PO SCH ×3 (06:33→21:23)
[2021-06-05] MEDS ORDERED: PT OWN MED DRAWER 7, Y5N ONE (08:36)
[2021-06-05] MEDS: METHOCARBAMOL 500 MG TABLET PO SCH ×4 (09:50→21:24)
[2021-06-05] MEDS: BUDESONIDE/FORMETEROL FUMARATE 160/4.5 mcg INHALER IH SCH ×2 (09:50→21:26)
[2021-06-05] MEDS: BACITRACIN 0.9 GM PACKET TP SCH ×2 (09:50→21:23)
[2021-06-05] MEDS: ASPIRIN COATED 81 MG TABLET.EC PO SCH (09:50)
[2021-06-05] MEDS: NICOTINE 7 MG/24 HOURS TOPICAL PATCH TD SCH (09:50)
[2021-06-05] MEDS: PRENATAL VITAMINS W/ FOLIC ACID TABLET (FP) PO SCH (09:50)
[2021-06-05] MEDS: traZODone HCL 100 MG TABLET (FP) PO SCH (21:23)
[2021-06-05] MEDS: THIAMINE HCL 100 MG TABLET (FP) PO SCH (21:23)
[2021-06-05] MEDS: MELATONIN 5 MG TABLETS PO SCH (21:24)
[2021-06-06] MEDS ORDERED: methaDONE HCL 10 MG TABLET ONE (04:33)
[2021-06-06] MEDS ORDERED: methaDONE HCL 40 MG DISPERSABLE TABLET ONE (04:34)
[2021-06-06] MEDS: methaDONE 40 MG, methaDONE 20 MG PO SCH (06:21)
[2021-06-06] MEDS: GABAPENTIN 300 MG CAPSULE PO SCH ×3 (06:22→21:17)
[2021-06-06] MEDS: INSULIN SLIDING SCALE (NOVOLOG) 1 VIAL SQ SCH ×2 (06:37→16:41)
[2021-06-06] MEDS: BUDESONIDE/FORMETEROL FUMARATE 160/4.5 mcg INHALER IH SCH ×2 (09:54→21:17)
[2021-06-06] MEDS: NICOTINE 7 MG/24 HOURS TOPICAL PATCH TD SCH (09:55)
[2021-06-06] MEDS: BACITRACIN 0.9 GM PACKET TP SCH ×2 (09:55→21:17)
[2021-06-06] MEDS: PRENATAL VITAMINS W/ FOLIC ACID TABLET (FP) PO SCH (09:56)
[2021-06-06] MEDS: METHOCARBAMOL 500 MG TABLET PO SCH ×5 (09:56→21:17)
[2021-06-06] MEDS: ASPIRIN COATED 81 MG TABLET.EC PO SCH (09:56)
[2021-06-06] MEDS: MELATONIN 5 MG TABLETS PO SCH (21:17)
[2021-06-06] MEDS: traZODone HCL 100 MG TABLET (FP) PO SCH (21:17)
[2021-06-06] MEDS: THIAMINE HCL 100 MG TABLET (FP) PO SCH (21:17)
[2021-06-07] MEDS ORDERED: methaDONE HCL 10 MG TABLET ONE (04:27)
[2021-06-07] MEDS ORDERED: methaDONE HCL 40 MG DISPERSABLE TABLET ONE (04:28)
[2021-06-07] MEDS: methaDONE 40 MG, methaDONE 20 MG PO SCH (06:34)
[2021-06-07] MEDS: GABAPENTIN 300 MG CAPSULE PO SCH ×3 (06:34→21:18)
[2021-06-07] MEDS: INSULIN SLIDING SCALE (NOVOLOG) 1 VIAL SQ SCH ×2 (06:35→16:48)
[2021-06-07] MEDS: NICOTINE 7 MG/24 HOURS TOPICAL PATCH TD SCH (09:44)
[2021-06-07] MEDS: ASPIRIN COATED 81 MG TABLET.EC PO SCH (09:44)
[2021-06-07] MEDS: BUDESONIDE/FORMETEROL FUMARATE 160/4.5 mcg INHALER IH SCH ×2 (09:44→21:20)
[2021-06-07] MEDS: BACITRACIN 0.9 GM PACKET TP SCH ×2 (09:44→21:18)
[2021-06-07] MEDS: METHOCARBAMOL 500 MG TABLET PO SCH ×4 (09:44→21:20)
[2021-06-07] MEDS: PRENATAL VITAMINS W/ FOLIC ACID TABLET (FP) PO SCH (09:44)
[2021-06-07] MEDS: MELATONIN 5 MG TABLETS PO SCH (21:18)
[2021-06-07] MEDS: traZODone HCL 100 MG TABLET (FP) PO SCH (21:18)
[2021-06-07] MEDS: THIAMINE HCL 100 MG TABLET (FP) PO SCH (21:18)
[2021-06-08] MEDS ORDERED: methaDONE HCL 10 MG TABLET ONE (04:16)
[2021-06-08] MEDS ORDERED: methaDONE HCL 40 MG DISPERSABLE TABLET ONE (04:17)
[2021-06-08] MEDS: methaDONE 40 MG, methaDONE 20 MG PO SCH (06:33)
[2021-06-08] MEDS: GABAPENTIN 300 MG CAPSULE PO SCH ×3 (06:33→21:16)
[2021-06-08] MEDS: INSULIN SLIDING SCALE (NOVOLOG) 1 VIAL SQ SCH (06:47)
[2021-06-08] MEDS: METHOCARBAMOL 500 MG TABLET PO SCH ×4 (09:47→21:17)
[2021-06-08] MEDS: PRENATAL VITAMINS W/ FOLIC ACID TABLET (FP) PO SCH (09:47)
[2021-06-08] MEDS: ASPIRIN COATED 81 MG TABLET.EC PO SCH (09:47)
[2021-06-08] MEDS: BACITRACIN 0.9 GM PACKET TP SCH ×2 (09:47→21:15)
[2021-06-08] MEDS: NICOTINE 7 MG/24 HOURS TOPICAL PATCH TD SCH (09:48)
[2021-06-08] MEDS: BUDESONIDE/FORMETEROL FUMARATE 160/4.5 mcg INHALER IH SCH ×2 (09:48→21:18)
[2021-06-08 15:00] LABS: URINE APPEARANCE CLEAR; URINE BILIRUBIN NEGATIVE (NEGATIVE); URINE COLOR YELLOW; URINE GLUCOSE (UA) NEGATIVE (NEGATIVE); URINE KETONE NEGATIVE (NEGATIVE); URINE LEUK ESTERASE NEGATIVE (NEGATIVE); URINE NITRITE NEGATIVE (NEGATIVE); URINE PROTEIN NEGATIVE (NEGATIVE); URINE UROBILINOGEN 0.2 mg/dL (0.2-1.0)
[2021-06-08] MEDS: traZODone HCL 100 MG TABLET (FP) PO SCH (21:15)
[2021-06-08] MEDS: MELATONIN 5 MG TABLETS PO SCH (21:16)
[2021-06-08] MEDS: THIAMINE HCL 100 MG TABLET (FP) PO SCH (21:17)
[2021-06-09] MEDS ORDERED: methaDONE HCL 40 MG DISPERSABLE TABLET ONE (03:39)
[2021-06-09] MEDS ORDERED: methaDONE HCL 10 MG TABLET ONE (03:39)
[2021-06-09] MEDS: methaDONE 40 MG, methaDONE 20 MG PO SCH (06:18)
[2021-06-09] MEDS: GABAPENTIN 300 MG CAPSULE PO SCH ×3 (06:18→21:21)
[2021-06-09] MEDS: BACITRACIN 0.9 GM PACKET TP SCH ×2 (09:37→21:20)
[2021-06-09] MEDS: ASPIRIN COATED 81 MG TABLET.EC PO SCH (09:37)
[2021-06-09] MEDS: METHOCARBAMOL 500 MG TABLET PO SCH ×4 (09:37→21:20)
[2021-06-09] MEDS: PRENATAL VITAMINS W/ FOLIC ACID TABLET (FP) PO SCH (09:37)
[2021-06-09] MEDS: NICOTINE 7 MG/24 HOURS TOPICAL PATCH TD SCH (09:37)
[2021-06-09] MEDS: BUDESONIDE/FORMETEROL FUMARATE 160/4.5 mcg INHALER IH SCH ×2 (09:37→21:21)
[2021-06-09] MEDS: traZODone HCL 100 MG TABLET (FP) PO SCH (21:20)
[2021-06-09] MEDS: MELATONIN 5 MG TABLETS PO SCH (21:21)
[2021-06-09] MEDS: THIAMINE HCL 100 MG TABLET (FP) PO SCH (21:21)
[2021-06-10] MEDS ORDERED: methaDONE HCL 10 MG TABLET ONE (03:56)
[2021-06-10] MEDS ORDERED: methaDONE HCL 40 MG DISPERSABLE TABLET ONE (03:56)
[2021-06-10] MEDS: GABAPENTIN 300 MG CAPSULE PO SCH ×3 (06:42→21:12)
[2021-06-10] MEDS: methaDONE 40 MG, methaDONE 20 MG PO SCH (06:42)
[2021-06-10] MEDS: METHOCARBAMOL 500 MG TABLET PO SCH ×4 (09:45→21:12)
[2021-06-10] MEDS: BACITRACIN 0.9 GM PACKET TP SCH ×2 (09:45→21:13)
[2021-06-10] MEDS: ASPIRIN COATED 81 MG TABLET.EC PO SCH (09:45)
[2021-06-10] MEDS: PRENATAL VITAMINS W/ FOLIC ACID TABLET (FP) PO SCH (09:45)
[2021-06-10] MEDS: BUDESONIDE/FORMETEROL FUMARATE 160/4.5 mcg INHALER IH SCH ×2 (09:46→23:34)
[2021-06-10] MEDS: NICOTINE 7 MG/24 HOURS TOPICAL PATCH TD SCH (09:46)
[2021-06-10] MEDS ORDERED: PT OWN MED DRAWER 7, Y5N ONE (16:17)
[2021-06-10] MEDS ORDERED: traZODone HCL 50 MG TABLET (FP) ONE (19:04)
[2021-06-10] MEDS: MELATONIN 5 MG TABLETS PO SCH (21:12)
[2021-06-10] MEDS: THIAMINE HCL 100 MG TABLET (FP) PO SCH (21:12)
[2021-06-10] MEDS: traZODone HCL 100 MG TABLET (FP) PO SCH (21:13)
[2021-06-11] MEDS ORDERED: methaDONE HCL 40 MG DISPERSABLE TABLET ONE (04:11)
[2021-06-11] MEDS ORDERED: methaDONE HCL 10 MG TABLET ONE (04:11)
[2021-06-11] MEDS: GABAPENTIN 300 MG CAPSULE PO SCH (06:31)
[2021-06-11] MEDS: methaDONE 40 MG, methaDONE 20 MG PO SCH (06:34)
[2021-06-11 06:49] VITALS: TEMP 97.1
[2021-06-11] MEDS: METHOCARBAMOL 500 MG TABLET PO SCH (09:11)
[2021-06-11] MEDS: PRENATAL VITAMINS W/ FOLIC ACID TABLET (FP) PO SCH (09:11)
[2021-06-11] MEDS: BACITRACIN 0.9 GM PACKET TP SCH (09:11)
[2021-06-11] MEDS: NICOTINE 7 MG/24 HOURS TOPICAL PATCH TD SCH (09:11)
[2021-06-11] MEDS: ASPIRIN COATED 81 MG TABLET.EC PO SCH (09:11)
[2021-06-11 09:15] VITALS: BP 107/72; PULSE 76
[2021-06-11] MEDS ORDERED: PT OWN MED DRAWER 7, Y5N ONE (09:17)
[2021-06-11] MEDS: BUDESONIDE/FORMETEROL FUMARATE 160/4.5 mcg INHALER IH SCH (09:17)
== END 2021-06-11 09:51 | disposition home or self-care (01) | DRG 772 ==
LOC: YASAS 11:34 → Y3E 17:44
PROVIDERS: ADMIT Allergy & Immunology; ATTEND Allergy & Immunology
PROC: HZ42ZZZ Group Counseling for Substance Abuse Treatment, Cognitive-Behavioral (ICD-10-PCS; principal; 2021-05-28)
DX: F14.20 Cocaine dependence, uncomplicated (principal); F11.20 Opioid dependence, uncomplicated; F17.210 Nicotine dependence, cigarettes, uncomplicated; F90.9 Attention-deficit hyperactivity disorder, unspecified type; F25.9 Schizoaffective disorder, unspecified; F19.24 Other psychoactive substance dependence with psychoactive substance-induced mood disorder; E11.9 Type 2 diabetes mellitus without complications; R63.4 Abnormal weight loss; B19.20 Unspecified viral hepatitis C without hepatic coma; G56.00 Carpal tunnel syndrome, unspecified upper limb; R35.0 Frequency of micturition; R39.15 Urgency of urination; R48.0 Dyslexia and alexia; G47.00 Insomnia, unspecified; Z62.810 Personal history of physical and sexual abuse in childhood; Z59.0 Homelessness
CPT/HCPCS: 36415; 80053; 81003; 82962; 85027; 86780; 87086; 87389; 93005; 93010; C9803; U0003; U0005